=== PATIENT | female | born 1995 | race Caucasian/White ===

== ENCOUNTER 2017-03-08 21:59 | Emergency (ER) | payer SELFPAY ==
[2017-03-09] MEDS ORDERED: CEPHALEXIN 500 MG CAPSULE PO ONE (00:26)
--- NOTE | 2017-03-09 00:27 | ER Document Report ---
ED Skin Rash/Insect Bite/Abscs - General Mode of Arrival: Ambulatory Information source: Patient TRAVEL OUTSIDE OF THE [place] IN LAST 30 DAYS: No - HPI Patient complains to provider of: Skin rash/lesion, Tender/swollen area Onset: This morning - General Chief Complaint: Abscess Stated Complaint: LUMP ON LEFT THIGH Time Seen by Provider: 03/08/17 23:59 Notes: 22-year-old female presents to the ED complaining of 2 abscesses to the left posterior thigh that she noticed earlier today. Patient states that she has been bitten by multiple mosquitoes, but has never developed any swelling and tenderness secondary to bite. Patient does not have a primary care provider ( DAPHNE CROOK) - Related Data Allergies/Adverse Reactions: red dye [Red Dye] Allergy (Verified 04/13/16 20:15) sulfamethoxazole [From Septra] Allergy (Verified 04/13/16 20:15) trimethoprim [From Septra] Allergy (Verified 04/13/16 20:15) vicks vapor rub Allergy (Uncoded 04/13/16 20:15) Past Medical History - General Information source: Patient - Social History Smoking Status: Current Every Day Smoker Chew tobacco use (# tins/day): No Frequency of alcohol use: Rare Drug Abuse: None Family History: Reviewed & Not Pertinent Endocrine Medical History: Denies: Hx Diabetes Mellitus Type 2 Renal/ Medical History: Denies: Hx Peritoneal Dialysis Past Surgical History: Reports: Hx Tonsillectomy - &adenoids - Immunizations Immunizations up to date: Yes Hx Diphtheria, Pertussis, Tetanus Vaccination: Yes Review of Systems - Review of Systems Constitutional: No symptoms reported EENT: No symptoms reported Cardiovascular: No symptoms reported Respiratory: No symptoms reported Gastrointestinal: No symptoms reported Genitourinary: No symptoms reported Female Genitourinary: No symptoms reported Musculoskeletal: No symptoms reported Skin: See HPI, Other - 2 abscesses to the left posterior thigh Hematologic/Lymphatic: No symptoms reported Neurological/Psychological: No symptoms reported -: Yes All other systems reviewed and negative Physical Exam - General General appearance: Alert In distress: None - HEENT Head: Normocephalic, Atraumatic Eyes: Normal Extraocular movements intact: Yes Pupils: PERRL - Respiratory Respiratory status: No respiratory distress Breath sounds: Normal - Cardiovascular Rhythm: Regular Heart sounds: Normal auscultation - Abdominal Inspection: Normal Distension: No distension Tenderness: Nontender - Back Back: Normal, Nontender - Extremities General upper extremity: Normal inspection, Normal ROM General lower extremity: Normal inspection, Normal ROM - Neurological Neuro grossly intact: Yes Cognition: Normal Orientation: AAOx4 Marce Coma Scale Eye Opening: Spontaneous [place] Coma Scale Verbal: Oriented Marce Coma Scale Motor: Obeys Commands [place] Coma Scale Total: 15 Speech: Normal - Psychological Associated symptoms: Normal affect, Normal mood - Skin Skin Temperature: Warm Skin Moisture: Dry Skin Color: Normal Skin irregularity: other - Multiple insect bites to the left thigh with localized surrounding erythema. No signs of necrosis, crepitus, or cellulitis. Discharge - Discharge Clinical Impression: Insect bite Qualifiers: Encounter type: initial encounter Qualified Code(s): W57.XXXA - Bitten or stung by nonvenomous insect and other nonvenomous arthropods, initial encounter Condition: Stable Disposition: HOME, SELF-CARE Additional Instructions: Insect Bites You have been bitten by an insect. These bites can cause two types of swelling: an initial swelling due to insect saliva or injected poison, and a late reaction due to your body's allergic reaction. This initial local reaction may be uncomfortable but is not dangerous. Often there's an itchy "hive" at the bite location. This is treated with antihistamines, cold compresses, and resting the affected body part. The later reaction often develops about the second day. The entire area becomes very swollen, red, itchy, and tender. This is an allergic reaction. Your body is attacking the leftover insect saliva or venom. This type of allergy is unpleasant, but not dangerous. We treat this swelling with cortisone -type medicine. Sometimes we use antibiotics if we're worried about infection. Antihistamines help with the itch. If you develop a fever, chills, a red streak, or swollen glands in the area of the bite, infection may be starting. Return at once. Prescriptions: Cephalexin Monohydrate [Keflex 500 mg Capsule] 500 mg PO QID #28 capsule Referrals: YARITZA WOOD MD [ACTIVE STAFF] - (call for An appointment to be seen in follow- up in 3-4 days return for increasing worsening or new symptoms) Scribe Attestation: 03/09/17 00:34 Presents emergency department with bumps on her left thigh looks like she has a couple areas which look like insect bites which have a localized reaction associated with them and not crepitus necrosis cellulitis or abscess. Do not require incision and drainage. She is well-appearing no systemic complaints and afebrile. When I gave her a dose of Keflex. She is follow-up with a primary care physician I have given her in the next 2-3 days and discussed reasons for ED return sooner (JOÃO GREY) Scribe Documentation - Scribe Written by Gumaro:: Gumaro Zavala, 03/09/2017 0101 acting as scribe for :: Justice
[2017-03-09 00:50] VITALS: BP 110/69
== END 2017-03-09 00:49 | disposition home or self-care (01) ==
LOC: ER 21:59
DX: S70.362A Insect bite (nonvenomous), left thigh, initial encounter (principal); W57.XXXA Bitten or stung by nonvenomous insect and other nonvenomous arthropods, initial encounter; Z91.048 Other nonmedicinal substance allergy status; Z88.1 Allergy status to other antibiotic agents; Z88.8 Allergy status to other drugs, medicaments and biological substances; F17.200 Nicotine dependence, unspecified, uncomplicated
CPT/HCPCS: 99281

== ENCOUNTER 2017-04-13 17:07 | Emergency (ER) | payer SELFPAY ==
[2017-04-13] MEDS ORDERED: MUPIROCIN 2% OINTMENT 22 GM TP ONE (17:38)
[2017-04-13] MEDS ORDERED: CLINDAMYCIN HCL 150 MG CAPSULE PO ONE (17:39)
--- NOTE | 2017-04-13 17:39 | ER Document Report ---
HPI - HPI Patient complains to provider of: rash left lat. thigh, right medial thigh abscess? Onset: Other - several days Quality of pain: Achy Pain Level: 4 Context: 22-year-old female complaining of possible abscess right medial thigh, rash left lateral upper thigh steroid cream is not helping, and wants a test since she has not had a period since March 05. Associated Symptoms: None Exacerbated by: Denies Relieved by: Denies Similar symptoms previously: No Recently seen / treated by doctor: No - ROS ROS below otherwise negative: Yes Systems Reviewed and Negative: Yes All other systems reviewed and negative - REPRODUCTIVE Reproductive: DENIES: : - DERM Skin Color: Normal Past Medical History - General Information source: Patient - Social History Smoking Status: Never Smoker Frequency of alcohol use: None Drug Abuse: None Lives with: Family Family History: Reviewed & Not Pertinent Patient has suicidal ideation: No Patient has homicidal ideation: No - Medical History Medical History: Negative Renal/ Medical History: Denies: Hx Peritoneal Dialysis Surgical Hx: Negative Past Surgical History: Reports: Hx Tonsillectomy - &adenoids - Immunizations Immunizations up to date: Yes Hx Diphtheria, Pertussis, Tetanus Vaccination: Yes Vertical Provider Document - CONSTITUTIONAL Agree With Documented VS: Yes Exam Limitations: No Limitations General Appearance: No Apparent Distress - INFECTION CONTROL TRAVEL OUTSIDE OF THE [place] IN LAST 30 DAYS: No - HEENT HEENT: Normal ENT Exam - NECK Neck: Supple - RESPIRATORY O2 Sat by Pulse Oximetry: 99 - MUSCULOSKELETAL/EXTREMETIES Musculoskeletal/Extremeties: MAEW, FROM - NEURO Level of Consciousness: Awake, Alert, Appropriate - DERM Integumentary: Rash - tinea rash left lateral upper thigh with central clearin, infalmed edges. folliculitis right medial upper thigh,1 more inflamed, not abscess Course - Re-evaluation Re-evalutation: 04/13/17 18:36 test that the patient requested a negative - Vital Signs Vital signs: Temp Pulse Resp BP Pulse Ox 98.0 F 84 18 125/70 99 04/13/17 17:09 04/13/17 17:09 04/13/17 17:09 04/13/17 17:09 04/13/17 17:09 Discharge - Discharge Clinical Impression: Tinea, Folliculitis Condition: Good Disposition: HOME, SELF-CARE Instructions: Skin Fungus ([facility]), Clindamycin ([facility]), Folliculitis ([facility]) Additional Instructions: Stop shaving pubic hair Bactroban 3 times a day to the small lesions Return to the emergency room if the area gets larger, more painful, red or, fever, [id number] antifungal cream to the posterior lateral thigh rash 1 inch past the border 3 times a day. Please complete the patient satisfaction survey if you get one, and return it.. If you do not receive a survey, then you can go to the [facility] website, [email or web address] and place your comments about your very good care. Thank you very much. It was a pleasure being your medical provider today. [id number]-twhaome topical antifungal cream to the left Prescriptions: Clindamycin HCl [Cleocin 150 mg Capsule] 300 mg PO TID #42 capsule Forms: Return to Work
[2017-04-13 18:21] VITALS: BP 104/62
== END 2017-04-13 18:47 | disposition home or self-care (01) ==
LOC: ER 17:07
DX: L73.9 Follicular disorder, unspecified (principal); B35.9 Dermatophytosis, unspecified; Z32.02 Encounter for pregnancy test, result negative
CPT/HCPCS: 99283; 81025; J3490

== ENCOUNTER 2017-06-11 10:43 | Emergency (ER) | payer SELFPAY ==
--- NOTE | 2017-06-11 11:47 | ER Document Report ---
ED General - General Chief Complaint: Flu Symptoms Stated Complaint: EAR ACHE Time Seen by Provider: 06/11/17 11:17 TRAVEL OUTSIDE OF THE [place] IN LAST 30 DAYS: No - HPI Patient complains to provider of: Runny nose bilateral ear pain sore throat Notes: Patient coming in for the above symptoms ongoing for 1 week. States history of otitis media in the past. Patient denies any recent swimming or travel. Patient states that her daughter was sick recently with similar symptoms. Patient is in no obvious distress upon my evaluation. - Related Data Allergies/Adverse Reactions: red dye [Red Dye] Allergy (Verified 06/11/17 10:55) sulfamethoxazole [From Septra] Allergy (Verified 06/11/17 10:55) trimethoprim [From Septra] Allergy (Verified 06/11/17 10:55) vicks vapor rub Allergy (Uncoded 06/11/17 10:55) Past Medical History - Social History Smoking Status: Current Every Day Smoker Chew tobacco use (# tins/day): No Frequency of alcohol use: None Drug Abuse: None Family History: Reviewed & Not Pertinent Endocrine Medical History: Denies: Hx Diabetes Mellitus Type 2 Renal/ Medical History: Denies: Hx Peritoneal Dialysis Past Surgical History: Reports: Hx Tonsillectomy - &adenoids - Immunizations Immunizations up to date: Yes Hx Diphtheria, Pertussis, Tetanus Vaccination: Yes Review of Systems - Review of Systems Constitutional: No symptoms reported EENT: Ear pain Cardiovascular: No symptoms reported Respiratory: No symptoms reported Gastrointestinal: No symptoms reported Genitourinary: No symptoms reported Female Genitourinary: No symptoms reported Musculoskeletal: No symptoms reported Skin: No symptoms reported Hematologic/Lymphatic: No symptoms reported Neurological/Psychological: No symptoms reported -: Yes All other systems reviewed and negative Physical Exam - Vital signs Vitals: Temp Pulse Resp BP Pulse Ox 98.7 F 90 16 123/76 98 06/11/17 10:53 06/11/17 10:53 06/11/17 10:53 06/11/17 10:53 06/11/17 10:53 Interpretation: Normal - General General appearance: Appears well, Alert - HEENT Head: Normocephalic, Atraumatic Eyes: Normal Conjunctiva: Normal Cornea: Normal Extraocular movements intact: Yes Pupils: PERRL Ears: Normal External canal: Normal Tympanic membrane: Injected, Purulent effusion - Right ear Sinus: Normal Pharynx: Normal Neck: Normal - Respiratory Respiratory status: No respiratory distress Chest status: Nontender Breath sounds: Normal Chest palpation: Normal - Cardiovascular Rhythm: Regular Heart sounds: Normal auscultation Murmur: No - Abdominal Inspection: Normal Distension: No distension Bowel sounds: Normal Tenderness: Nontender Organomegaly: No organomegaly - Back Back: Normal, Nontender - Extremities General upper extremity: Normal inspection, Nontender, Normal color, Normal ROM , Normal temperature General lower extremity: Normal inspection, Nontender, Normal color, Normal ROM , Normal temperature, Normal weight bearing. No: Luly's sign - Neurological Neuro grossly intact: Yes Cognition: Normal Orientation: AAOx4 [place] Coma Scale Eye Opening: Spontaneous [place] Coma Scale Verbal: Oriented [place] Coma Scale Motor: Obeys Commands [place] Coma Scale Total: 15 Speech: Normal Motor strength normal: LUE, RUE, LLE, RLE Sensory: Normal - Psychological Associated symptoms: Normal affect, Normal mood - Skin Skin Temperature: Warm Skin Moisture: Dry Skin Color: Normal Course - Re-evaluation Re-evalutation: 06/11/17 17:35 Examination consistent with a right otitis media will start on amoxicillin - Vital Signs Vital signs: Temp Pulse Resp BP Pulse Ox 98.0 F 80 14 120/75 100 06/11/17 11:52 06/11/17 11:52 06/11/17 11:52 06/11/17 11:52 06/11/17 11:52 Discharge - Discharge Clinical Impression: Right middle ear infection Qualifiers: Otitis media type: unspecified Chronicity: unspecified Qualified Code(s): H66.91 - Otitis media, unspecified, right ear Condition: Good Disposition: HOME, SELF-CARE Instructions: Amoxicillin ([facility]), Otitis Media ([facility]) Additional Instructions: Your right ear looks to have a middle ear infection today. Please take medications as prescribed. He may take Tylenol and Motrin for pain control. Return to ER symptoms worsen. Prescriptions: Amoxicillin 500 mg PO TID 10 Days capsule Prednisone [Deltasone] 60 mg PO DAILY 5 Days #15 tablet Forms: Return to Work
[2017-06-11 12:00] VITALS: BP 120/75
== END 2017-06-11 11:53 | disposition home or self-care (01) ==
LOC: ER 10:43
DX: H66.91 Otitis media, unspecified, right ear (principal); H92.09 Otalgia, unspecified ear; F17.200 Nicotine dependence, unspecified, uncomplicated
CPT/HCPCS: 99282

== ENCOUNTER 2017-07-26 17:16 | Emergency (ER) | payer OTHER ==
[2017-07-26 17:23] VITALS: BP 112/69
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
[2017-07-26 18:01] LABS: APPEARANCE,URINE SLIGHTLY-CLOUDY; BILIRUBIN,URINE NEGATIVE (NEGATIVE); GLUCOSE, URINE NEGATIVE (NEGATIVE); KETONES,URINE NEGATIVE (NEGATIVE); LEUKOCYTE ESTERASE,URINE LARGE (NEGATIVE); NITRITE,URINE NEGATIVE (NEGATIVE); PROTEIN,URINE NEGATIVE (NEGATIVE); UROBILINOGEN,URINE NEGATIVE mg/dL (<2.0)
[2017-07-26] MEDS ORDERED: NAPROXEN 250 MG TABLET PO ONE (18:34)
== END 2017-07-26 18:43 | disposition home or self-care (01) ==
LOC: ER 17:16
DX: M54.5 Low back pain (principal); V63.6XXA Passenger in heavy transport vehicle injured in collision with car, pick-up truck or van in traffic accident, initial encounter; F17.210 Nicotine dependence, cigarettes, uncomplicated; Z71.6 Tobacco abuse counseling; Z91.048 Other nonmedicinal substance allergy status; Z88.1 Allergy status to other antibiotic agents; Z88.8 Allergy status to other drugs, medicaments and biological substances
CPT/HCPCS: 81001; 81025; 99284

== ENCOUNTER 2018-01-09 13:34 | Emergency (ER) | payer SELFPAY ==
[2018-01-09] MEDS ORDERED: ACETAMINOPHEN 325 MG TABLET PO ONE (14:40)
--- NOTE | 2018-01-09 14:44 | ER Document Report ---
HPI - HPI Pain Level: 4 Notes: Patient is a 22-year-old female with a history of recurrent otitis media who presents to the ED complaining of right ear pain that radiates down into her right jaw over the last couple days. Patient has not noticed any obvious drainage. He has not had any other recent illness. She has been eating and drinking without difficulties. She has been urinating normally and having normal bowel movements. Patient has not been evaluated by ear nose and throat. No other concerns or complaints at this time. No recent swimming or bathing. Denies any headache, fever, head injury, neck pain, changes in vision/speech/ mentation/hearing, URI, sore throat, chest pain, palpitations, syncope, cough, shortness of breath, wheeze, dyspnea, abdominal pain, nausea/vomiting/diarrhea, urinary retention, dysuria, hematuria, or rash. - ROS Systems Reviewed and Negative: Yes All other systems reviewed and negative - CONSTITUTIONAL Constitutional: DENIES: Fever, Chills - EENT EENT: REPORTS: Ear Pain - right - REPRODUCTIVE Reproductive: DENIES: : Past Medical History - Social History Smoking Status: Current Every Day Smoker Chew tobacco use (# tins/day): No Frequency of alcohol use: None Drug Abuse: None Family History: Arthritis, COPD, Hyperlipidemia, Hypertension, Thyroid Disfunction. denies: CAD, CVA, DM, Malignancy Patient has suicidal ideation: No Patient has homicidal ideation: No Renal/ Medical History: Reports: Hx Ovarian Cysts. Denies: Hx Peritoneal Dialysis Musculoskeltal Medical History: Reports Hx Musculoskeletal Deformity, Reports Hx Musculoskeletal Trauma Psychiatric Medical History: Reports: Hx Anxiety, Hx Depression Past Surgical History: Reports: Hx Adenoidectomy, Hx Tonsillectomy - Immunizations Immunizations up to date: Yes Hx Diphtheria, Pertussis, Tetanus Vaccination: Yes Vertical Provider Document - CONSTITUTIONAL Agree With Documented VS: Yes Notes: PHYSICAL EXAMINATION: GENERAL: Well-appearing, well-nourished and in no acute distress. A&Ox4. Answers questions appropriately. Moves comfortably w/o notable distress HEAD: Atraumatic, normocephalic. EYES: Pupils equal round and reactive to light, extraocular movements intact, sclera anicteric, conjunctiva are normal. ENT: EAC clear b/l. Rt TM mild bulging/erythema. Lt TM wnl. Nares patent and without discharge. oropharynx no erythema without exudates. No tonsilar hypertrophy without erythema or exudate. No palatine shift. Uvula midline. No tongue protrusion. No drooling, hoarseness, or airway compromise. Moist mucous membranes. No sinus tenderness. No dental pain/abscess noted. NECK: Normal range of motion, supple without lymphadenopathy. No rigidity/ meningismus. LUNGS: Breath sounds clear to auscultation bilaterally and equal. No wheezes rales or rhonchi. No retractions HEART: Regular rate and rhythm without murmurs, rubs, gallops. ABDOMEN: Soft, nontender, nondistended abdomen. No guarding, no rebound. No masses appreciated. Normal bowel sounds present. No CVA tenderness bilaterally. No hepatosplenomegaly. NEUROLOGICAL: Normal speech, normal gait. Normal sensory, motor exams PSYCH: Normal mood, normal affect. SKIN: Warm, Dry, normal turgor, no rashes or lesions noted. - INFECTION CONTROL TRAVEL OUTSIDE OF THE [place] IN LAST 30 DAYS: No Course - Re-evaluation Re-evalutation: 01/09/18 14:42 Patient is an afebrile, well-hydrated, 22-year-old female who presents to the ED with acute otitis media of the right ear. Vitals are acceptable. PE is otherwise unremarkable. No labs or imaging warranted at this time based on H& P. Low suspicion for any meningitis, sepsis, peritonsillar/pharyngeal abscess, respiratory compromise, Abhilash's, or other emergent systemic condition at this time. Patient is aware this condition can change from initial presentation and she needs to monitor symptoms closely. I will send her home with a prescription for amoxicillin. Conservative measures otherwise for symptoms. Recheck with your PCM in 3-5 days. Return to the ED with any worsening/ concerning symptoms otherwise as reviewed in discharge. Patient is in agreement. - Vital Signs Vital signs: Temp Pulse Resp BP Pulse Ox 98.3 F 91 14 119/63 97 01/09/18 13:44 01/09/18 13:44 01/09/18 13:44 01/09/18 13:44 01/09/18 13:44 Discharge - Discharge Clinical Impression: Otitis media, right Qualifiers: Otitis media type: unspecified Qualified Code(s): H66.91 - Otitis media, unspecified, right ear Condition: Stable Disposition: HOME, SELF-CARE Instructions: Otitis Media ([facility]) Additional Instructions: Maintain adequate fluid intake Take meds as directed Keep the ears clean and avoid use of q-tips tylenol/ibuprofen as needed over the counter cold medication as needed for symptoms Wash your hands regularly F/u: with your PCM in 3-5 days for a recheck Consider consult with ENT for further evaluation and management Return to the ED with any fever, worsening pain, chest pain, palpitations, syncope, worsening MCCARTHY, neck pain/stiffness, shortness of breath, wheezing, drooling, trouble swallowing/breathing, abdominal pain, n/v/d, rash, or worsening/concerning symptoms otherwise. Prescriptions: Amoxicillin Trihydrate [Amoxil 875 mg Tablet] 1 tab PO BID #20 tablet Forms: Smoking Cessation Education Referrals: NICK RODRIGUEZ DO [ASSOCIATE] - Follow up as needed
[2018-01-09 15:35] VITALS: BP 112/68
== END 2018-01-09 15:35 | disposition home or self-care (01) ==
LOC: ER 13:34
DX: H66.91 Otitis media, unspecified, right ear (principal); F17.200 Nicotine dependence, unspecified, uncomplicated
CPT/HCPCS: 99282

== ENCOUNTER 2018-02-07 19:39 | Emergency (ER) | payer SELFPAY ==
[2018-02-07 20:27] VITALS: BP 115/61
[2018-02-07] MEDS ORDERED: HYDROCODONE/ACETAMINOPHEN 5-325 MG (6 TAB/ER DISP) PO PRN (22:03)
[2018-02-07] MEDS ORDERED: PENICILLIN V POTASSIUM 500 MG TABLET PO ONE (22:03)
--- NOTE | 2018-02-07 22:03 | ER Document Report ---
HPI - HPI Pain Level: 2 Notes: 22-year-old female with complaint of possible abscess behind her front lower teeth. Patient reports this is been there for about 4 days. Patient reports that intermittently it has drained pus-like fluid. Patient reports that she feels it is getting larger and is more painful. Patient reports that she feels like her tooth is has pressure on it due to the area in question. - REPRODUCTIVE Reproductive: DENIES: : Past Medical History - General Information source: Patient - Social History Smoking Status: Current Some Day Smoker Cigarette use (# per day): No Chew tobacco use (# tins/day): No Smoking Education Provided: No Frequency of alcohol use: None Drug Abuse: None Family History: Arthritis, COPD, Hyperlipidemia, Hypertension, Thyroid Disfunction. denies: CAD, CVA, DM, Malignancy Renal/ Medical History: Reports: Hx Ovarian Cysts. Denies: Hx Peritoneal Dialysis Musculoskeltal Medical History: Reports Hx Musculoskeletal Deformity, Reports Hx Musculoskeletal Trauma Psychiatric Medical History: Reports: Hx Anxiety, Hx Depression Past Surgical History: Reports: Hx Adenoidectomy, Hx Tonsillectomy - Immunizations Immunizations up to date: Yes Hx Diphtheria, Pertussis, Tetanus Vaccination: Yes Vertical Provider Document - CONSTITUTIONAL Agree With Documented VS: Yes Exam Limitations: No Limitations General Appearance: WD/WN, No Apparent Distress - INFECTION CONTROL TRAVEL OUTSIDE OF THE [place] IN LAST 30 DAYS: No - HEENT HEENT: Normocephalic, PERRLA Mouth Diagram: 1 - approx 1cm abscess beind front lower tooth - NECK Neck: Normal Inspection - RESPIRATORY Respiratory: Breath Sounds Normal, No Respiratory Distress - CARDIOVASCULAR Cardiovascular: Regular Rate, Regular Rhythm - GI/ABDOMEN Gastrointestinal: Abdomen Non-Tender - MUSCULOSKELETAL/EXTREMETIES Musculoskeletal/Extremeties: NIESHA SORIANO - NEURO Level of Consciousness: Awake, Alert - DERM Integumentary: Warm, Dry, No Rash Course - Re-evaluation Re-evalutation: Small abscess incised initially with 18-gauge needle with minimal results. Patient requesting for it to be drained further. Approximately 0.25cm incision made with scalpel and additional drainage was obtained. Patient given 2 x 2 and told to use salt water gargles. Patient will be placed on antibiotics and instructed to follow-up with dentist later this week or early next week. Patient understands return precautions to include worsening swelling or development of fever. 02/08/18 05:24 - Vital Signs Vital signs: Temp Pulse Resp BP Pulse Ox 98.5 F 81 16 115/61 97 02/07/18 20:26 02/07/18 20:26 02/07/18 20:26 02/07/18 20:26 02/07/18 20:26 Procedures - Incision and Drainage lower inside gum line I&D procedure: Other Incision Method: Incision made by scalpel Discharge - Discharge Clinical Impression: Oral abscess Condition: Stable Disposition: HOME, SELF-CARE Additional Instructions: Dental Infection or Abscess You have an infection, perhaps an abscess (pus formation) of the gum around one of your teeth, which is possibly decayed. If there is an abscess, it may drain on its own or it may need to be opened or lanced. Severe swelling or drainage around a tooth usually means a deep dental abscess which usually requires evaluation and treatment by a dentist or oral surgeon. Antibiotics may be prescribed while awaiting dental treatment. If you develop high fever with chills, worsening pain, or increasing swelling in the area, see a dentist or oral surgeon immediately or return to the Emergency Department immediately. Take medications as prescribed prescribed. Make a follow-up appointment with your dentist for early next week for a recheck. Prescriptions: Penicillin V Potassium [Penicillin Vk 500 mg Tablet] 500 mg PO BID #20 tablet Forms: Return to Work
== END 2018-02-07 22:30 | disposition home or self-care (01) ==
LOC: ER 19:39
DX: K12.2 Cellulitis and abscess of mouth (principal); F17.200 Nicotine dependence, unspecified, uncomplicated
CPT/HCPCS: 99283

== ENCOUNTER 2018-02-09 18:47 | Emergency (ER) | payer SELFPAY ==
[2018-02-09] MEDS ORDERED: PENICILLIN V POTASSIUM 500 MG TABLET PO ONE (20:56)
--- NOTE | 2018-02-09 21:01 | ER Document Report ---
ED Oral Problem - General Chief Complaint: Mouth Problem Stated Complaint: MOUTH PAIN Time Seen by Provider: 02/09/18 20:15 Mode of Arrival: Ambulatory Information source: Patient TRAVEL OUTSIDE OF THE [place] IN LAST 30 DAYS: No - HPI Patient complains to provider of: Other - gum pain Notes: Patient is here with complaints of left lower gum swelling that started a few days ago. The patient was seen in the emergency department 2 days ago and had an incision and drainage performed. She was given a prescription for Pen-Vee K , but states that she did not fill it and has not been taking any antibiotics. She states that now the area is swollen again. She denies fever. She denies difficulty breathing or swallowing. No nausea, vomiting, diarrhea. No rash. No facial swelling. No neck swelling. No chest pain or shortness of breath. No abdominal pain. She denies any other complaints at this time. - Related Data Allergies/Adverse Reactions: red dye [Red Dye] Allergy (Verified 02/09/18 19:49) sulfamethoxazole [From Septra] Allergy (Verified 02/09/18 19:49) trimethoprim [From Septra] Allergy (Verified 02/09/18 19:49) vicks vapor rub Allergy (Uncoded 02/09/18 19:49) Past Medical History - Social History Smoking Status: Current Every Day Smoker Frequency of alcohol use: Occasional Drug Abuse: None Family History: Arthritis, COPD, Hyperlipidemia, Hypertension, Thyroid Disfunction. denies: CAD, CVA, DM, Malignancy Patient has suicidal ideation: No Patient has homicidal ideation: No Renal/ Medical History: Reports: Hx Ovarian Cysts. Denies: Hx Peritoneal Dialysis Musculoskeltal Medical History: Reports Hx Musculoskeletal Deformity, Reports Hx Musculoskeletal Trauma Psychiatric Medical History: Reports: Hx Anxiety, Hx Depression Past Surgical History: Reports: Hx Adenoidectomy, Hx Tonsillectomy - Immunizations Immunizations up to date: Yes Hx Diphtheria, Pertussis, Tetanus Vaccination: Yes Review of Systems - Review of Systems -: Yes All other systems reviewed and negative Physical Exam - Vital signs Vitals: Temp Pulse Resp BP Pulse Ox 99.0 F 87 18 111/67 97 02/09/18 18:58 02/09/18 18:58 02/09/18 18:58 02/09/18 18:58 02/09/18 18:58 - Notes Notes: GENERAL: alert, cooperative, nontoxic, no distress. HEAD: normocephalic, atraumatic EYES: conjunctiva pink without discharge, no external redness or swelling. EARS: no external swelling, no external redness NOSE: atraumatic, no external swelling MOUTH/THROAT: mucous membranes moist and pink. Small, 3 mm possible abscess to the lingual aspect of the left lower jaw at approximately tooth #23. There is no sublingual swelling or induration. No trismus or drooling. Voice is normal. No airway restriction. NECK: soft, supple, full range of motion, no meningismus. CHEST: no distress, lungs clear and equal throughout. No wheezing, rales, rhonchi. CARDIAC: regular rate and rhythm, no murmur, normal capillary refill, normal pulses. BACK: full range of motion, no CVA tenderness. EXTREMITIES: full range of motion of all extremities. No redness, no swelling. NEURO: alert and oriented 3, no focal deficits, full range of motion of all extremities. PYSCH: appropriate mood, affect. Patient is cooperative. SKIN: pink, warm, dry, no rash. Course - Re-evaluation Re-evalutation: 02/09/18 20:58 Patient is nontoxic appearing with stable vitals. She is here with complaints of gum abscess. She was seen here 2 days ago and had an I&D performed and was given a prescription for Pen-Vee K. She states that she did not fill the antibiotics because she did not have any money. She did not actually take the prescription to see how much it would cost to get filled. This point she states that the area seems to be returning. She denies any worsening pain. No fever. No difficulty breathing or swallowing. On exam she has a very small abscess to the left lingual aspect of the gumline. There is no sign of Abhilash' s angina. She is in no distress. Did offer another I&D. She declined at this time. This point the patient will be given a dose of Pen-Vee K in the emergency department she was instructed to fill the prescription she was given 2 days ago and start this medication at the next available time. She is instructed to apply warm compresses to sore area. She is instructed to follow- up with a dentist at the next available appointment. She should follow-up sooner if she develops worsening pain, fever, difficulty breathing or swallowing , persistent vomiting, neck swelling, facial swelling, or for any further concerns. The patient's emergency department workup and current diagnosis were explained to the patient and or family. Follow-up instructions were provided. Medications if prescribed were discussed. Instructions for when to return to the emergency department including specific worrisome symptoms were discussed with the patient and/or family. - Vital Signs Vital signs: Temp Pulse Resp BP Pulse Ox 99.0 F 87 18 111/67 97 02/09/18 18:58 02/09/18 18:58 02/09/18 18:58 02/09/18 18:58 02/09/18 18:58 Discharge - Discharge Clinical Impression: Dental abscess Condition: Stable Disposition: HOME, SELF-CARE Instructions: Abscess ([facility]), Dental Infection or Abscess ([facility]), Dentist Additional Instructions: Take medications as prescribed. Apply warm compresses. Follow-up with a dentist at the next available appointment. Tylenol Motrin as needed for pain. Follow-up sooner for worsening pain, fever, swelling, difficulty breathing or swelling, or for any further concerns. Referrals: [facility] [Provider Group] - Follow up as needed DENTISTRY [Provider Group] - Follow up as needed
[2018-02-09 21:32] VITALS: BP 144/76
== END 2018-02-09 21:32 | disposition home or self-care (01) ==
LOC: ER 18:47
DX: K04.7 Periapical abscess without sinus (principal); K08.89 Other specified disorders of teeth and supporting structures; R22.0 Localized swelling, mass and lump, head; F17.200 Nicotine dependence, unspecified, uncomplicated
CPT/HCPCS: 99282

== ENCOUNTER 2018-05-16 01:08 | Emergency (ER) | payer SELFPAY ==
[2018-05-16] MEDS ORDERED: DEXAMETHASONE SOD PHOS INJ 10 MG/1 ML VIAL IV ONE (02:01)
[2018-05-16] MEDS ORDERED: NORMAL SALINE 1000 ML 1,000 ML IV ONE (02:01)
[2018-05-16] MEDS ORDERED: METOCLOPRAMIDE HCL INJ/PF 10 MG/2 ML SDV IV ONE (02:01)
--- NOTE | 2018-05-16 02:29 | ER Document Report ---
ED General - General Chief Complaint: Chest Wall Pain Stated Complaint: HEADACHES,CHEST PAINS Time Seen by Provider: 05/16/18 01:55 Notes: Patient is a 23-year-old female presents with complaint of aching chest pain. Patient says that she has been stressed out a lot recently. She does have history of anxiety but is unsure if this is related to anxiety. Headache started 3 days ago and was just a mild which she called "normal" headache. Headache that has progressively worse over last 2 days and then today she started having some chest pain. Said chest pain is pleuritic and worse whenever she takes a deep breath or coughs. No fevers. No vomiting. No history of DVT or PE. No leg pain or leg swelling. No focal weakness or numbness. No other complaints at this time. TRAVEL OUTSIDE OF THE [place] IN LAST 30 DAYS: No - Related Data Allergies/Adverse Reactions: red dye [Red Dye] Allergy (Verified 02/09/18 19:49) sulfamethoxazole [From Septra] Allergy (Verified 02/09/18 19:49) trimethoprim [From Septra] Allergy (Verified 02/09/18 19:49) vicks vapor rub Allergy (Uncoded 02/09/18 19:49) Past Medical History - Social History Smoking Status: Unknown if Ever Smoked Frequency of alcohol use: None Drug Abuse: None Family History: Arthritis, COPD, Hyperlipidemia, Hypertension, Thyroid Disfunction. denies: CAD, CVA, DM, Malignancy Patient has suicidal ideation: No Patient has homicidal ideation: No Renal/ Medical History: Reports: Hx Ovarian Cysts. Denies: Hx Peritoneal Dialysis Musculoskeletal Medical History: Reports Hx Musculoskeletal Deformity, Reports Hx Musculoskeletal Trauma Psychiatric Medical History: Reports: Hx Anxiety, Hx Depression Past Surgical History: Reports: Hx Adenoidectomy, Hx Tonsillectomy - Immunizations Immunizations up to date: Yes Hx Diphtheria, Pertussis, Tetanus Vaccination: Yes Review of Systems - Review of Systems Notes: My Normal Review Basic REVIEW OF SYSTEMS: CONSTITUTIONAL : Denies fever, chills, or sweats. Denies recent illness. EENT: Denies eye, ear, throat, or mouth pain or symptoms. Denies nasal or sinus congestion. CARDIOVASCULAR: Pleuritic chest pain RESPIRATORY: Denies cough, cold, or chest congestion. Denies shortness of breath, difficulty breathing, or wheezing. GASTROINTESTINAL: Denies abdominal pain. Denies nausea, vomiting, or diarrhea. GENITOURINARY: Denies difficulty urinating, painful urination, burning, frequency, or blood in urine. MUSCULOSKELETAL: Denies neck or back pain or joint pain or swelling. SKIN: Denies rash or skin lesions. NEUROLOGICAL: Denies altered mental status or loss of consciousness. Has a headache. Denies weakness or paralysis or loss of use of either side. Denies problems with gait or speech. Denies sensory or motor loss. PSYCHIATRIC: Some increased stressors. ALL OTHER SYSTEMS REVIEWED AND NEGATIVE. Physical Exam - Notes Notes: General Appearance: Well nourished, alert, cooperative, no acute distress, moderate obvious discomfort. Anxious. Vitals: reviewed, See vital signs table. Head: no swelling or tenderness to the head Eyes: PERRL, EOMI, Conjuctiva clear Mouth: No decreasd moisture Lungs: No wheezing, No rales, No rhonci, No accessory muscle use, good air exchange bilaterally. Heart: Tachycardic rate, Regular rythm, No murmur, no rub Abdomen: Normal BS, soft, No rigidity, No abdominal tenderness, No guarding, no rebound, no abdominal masses, no organomegaly Extremities: strength 5/5 in all extremities, good pulses in all extremities, no swelling or tenderness in the extremities, no edema. Skin: warm, dry, appropriate color, no rash Neuro: speech clear, oriented x 3, normal affect, responds appropriately to questions. Cranial nerves II through XII are intact. Distal sensation intact. Patient moves all extremities without any difficulty. No focal weakness on exam. Course - Re-evaluation Re-evalutation: 05/16/18 03:22 Patient is having some mild dystonia from the Reglan. I will therefore order Benadryl to help counteract this. 05/16/18 06:37 Patient symptoms have completely resolved. His chest pain headache are gone. She was tachycardic initially and therefore I did obtain a d-dimer. D-dimer was positive and therefore she had a CTA which did not show evidence of PE. Suspect that her symptoms could be related to her stress or anxiety. She otherwise looks well. I do not see a suspect subarachnoid hemorrhage being that her headache was gradual in onset and gradually worsening over the course of several days. She has no neurologic deficits and otherwise looks well. I feel that she is safe to be discharged home. I encouraged her return to ER immediately if she has recurrent severe headache, current chest pain, difficulty breathing, fevers, or feels unwell. Patient agrees with plan will be discharged home. Dictation of this chart was performed using voice recognition software; therefore, there may be some unintended grammatical errors. - Laboratory Result Diagrams: 05/16/18 02:31 05/16/18 02:31 Laboratory results interpreted by me: 05/16/18 02:31 D-Dimer 0.71 H - EKG Interpretation by Me Additional EKG results interpreted by me: 05/16/18 02:29 EKG is reviewed and interpreted by me. EKG shows sinus tachycardia with a rate of [address] segment elevation or depression. No ischemic T-wave inversions. FL interval, QRS duration, QTc intervals are within normal range. No old EKG available for comparison. Discharge - Discharge Clinical Impression: Chest pain Qualifiers: Chest pain type: unspecified Qualified Code(s): R07.9 - Chest pain, unspecified Headache Qualifiers: Headache type: unspecified Headache chronicity pattern: acute headache Intractability: not intractable Qualified Code(s): R51 - Headache Condition: Good Disposition: HOME, SELF-CARE Additional Instructions: Please rest over the next 24 hours. please return to the ER if you develop recurrent headaches, worsening chest pain, difficulty breathing, or feel unwell. Follow up with your doctor in 2 days. Forms: Return to Work
[2018-05-16 02:45] LABS: ABSOLUTE EOSINOPHILS # (AUTO) 0.2 10^3/uL (0.0-0.6); ABSOLUTE LYMPHOCYTES (AUTO) 1.6 10^3/uL (0.5-4.7); ABSOLUTE MONOCYTES (AUTO) 0.8 10^3/uL (0.1-1.4); ABSOLUTE NEUT (AUTO) 5.6 10^3/uL (1.7-8.2); BASOPHILS % (AUTO) 0.6 % (0-2); EOSINOPHILS % (AUTO) 2.5 % (0-6); HEMATOCRIT 41.9 % (36.0-47.0); HEMOGLOBIN 14.3 g/dL (12.0-15.5); LYMPHOCYTES % (AUTO) 19.8 % (13-45); MEAN CORPUSCULAR HEMOGLOBIN 29.4 pg (27.0-33.4); MEAN CORPUSCULAR HGB CONC 34.1 g/dL (32.0-36.0); MEAN CORPUSCULAR VOLUME 86 fl (80-97); MONOCYTES % (AUTO) 9.3 % (3-13); PLATELET COUNT 209 10^3/uL (150-450); RED BLOOD COUNT 4.85 10^6/uL (3.72-5.28); RED CELL DISTRIBUTION WIDTH 12.6 % (11.5-14.0); SEGMENTED NEUTROPHILS % (AUTO) 67.8 % (42-78); TOTAL CELLS COUNTED % (AUTO) 100 %; WHITE BLOOD COUNT 8.2 10^3/uL (4.0-10.5)
[2018-05-16 02:54] LABS: ANION GAP 14 (5-19); BLOOD UREA NITROGEN 9 mg/dL (7-20); CALCIUM 9.5 mg/dL (8.4-10.2); CARBON DIOXIDE 23 mmol/L (22-30); CHLORIDE 105 mmol/L (98-107); GLUCOSE 92 mg/dL (75-110)
--- NOTE | 2018-05-16 03:08 | RADIOLOGY REPORT (SQ) ---
EXAM DESCRIPTION: CT HEAD WITHOUT IV CONTRAST COMPLETED DATE/TME: 05/16/2018 02:01 CLINICAL HISTORY: 23 years Female, headache COMPARISON: None. TECHNIQUE: No contrast. Coronal and sagittal reformat. This exam was performed according to our departmental dose-optimization program, which includes automated exposure control, adjustment of the mA and/or kV according to patient size and/or use of iterative reconstruction technique. FINDINGS: No hemorrhage or infarct. No mass, mass effect, or midline shift. Brain and extra-axial structures appear intact. IMPRESSION: Normal CT of the head.
[2018-05-16] MEDS ORDERED: KETOROLAC TROMETHAMINE INJ/PF 30 MG/1 ML SDV IV ONE (03:09)
--- NOTE | 2018-05-16 03:14 | RADIOLOGY REPORT (SQ) ---
EXAM DESCRIPTION: XR CHEST 1 VIEW COMPLETED DATE/TME: 05/16/2018 02:01 CLINICAL HISTORY: 23 years, Female, chest pain COMPARISON: 11/07/2014 NUMBER OF VIEWS: One TECHNIQUE: PA view of the chest LIMITATIONS: None. FINDINGS: The lungs are clear. The heart is normal in size. There is no pneumothorax or pleural effusion. There is no acute fracture IMPRESSION: No acute cardiopulmonary abnormality 2010 [employer]- All Rights Reserved
[2018-05-16] MEDS ORDERED: DIPHENHYDRAMINE HCL 50 MG/ML VIAL IV ONE (03:22)
--- NOTE | 2018-05-16 04:55 | RADIOLOGY REPORT (SQ) ---
CT angiogram chest with contrast on 05/16/2018 at 4:34 AM CLINICAL INDICATION: Pleuritic chest pain, elevated d-dimer TECHNIQUE: Multiple axial images are obtained throughout the chest following the administration of IV contrast. Computer generated 3D reconstructions/MIPS were performed. This exam was performed according to our departmental dose-optimization program, which includes automated exposure control, adjustment of the mA and/or kV according to patient size and/or use of iterative reconstruction technique. Total DLP is 742.76 mGy*cm. COMPARISON: None FINDINGS: There is no aortic aneurysm or dissection. There is no pleural effusion. There is a trace right pleural effusion. No left pleural effusion is noted. Limited visualized upper abdomen is unremarkable. There is no thoracic adenopathy. There are no filling defects within the pulmonary arteries to suggest pulmonary embolus. There is minimal bilateral dependent atelectasis. The lungs are otherwise clear. No bony abnormality is noted. IMPRESSION: 1. No evidence of pulmonary embolus. 2. Trace right pleural effusion, otherwise essentially unremarkable.
--- NOTE | 2018-05-16 06:14 | EKG REPORT ---
SEVERITY:- OTHERWISE NORMAL ECG - SINUS TACHYCARDIA : Confirmed by: Harry Arzate MD 16-May-2018 06:13:22
== END 2018-05-16 05:55 | disposition home or self-care (01) ==
LOC: ER 01:08
DX: R07.81 Pleurodynia (principal); R51 Headache; F41.9 Anxiety disorder, unspecified; G24.09 Other drug induced dystonia; T45.0X5A Adverse effect of antiallergic and antiemetic drugs, initial encounter; Y92.238 Other place in hospital as the place of occurrence of the external cause; R79.1 Abnormal coagulation profile; R00.0 Tachycardia, unspecified; Z91.048 Other nonmedicinal substance allergy status; Z88.1 Allergy status to other antibiotic agents; Z88.8 Allergy status to other drugs, medicaments and biological substances
CPT/HCPCS: 93005; 99285; 96361; 96374; 96375; 36415; 84703; 85025; 80048; 85379; 71045; 70450; 71275; 93010; J1200; J1885; J2765; J7030; J1100

== ENCOUNTER 2018-10-09 11:24 | Emergency (ER) | payer SELFPAY ==
[2018-10-09] MEDS ORDERED: HYDROCODONE/ACETAMINOPHEN 5-325 MG TABLET PO ONE (12:44)
[2018-10-09] MEDS ORDERED: CIPROFLOXACIN HCL/DEXAMETH OTIC DROP 7.5 ML AS ONE (12:44)
[2018-10-09] MEDS ORDERED: AMOXICILLIN TRIHYDRATE 500 MG CAPSULE PO ONE (12:44)
--- NOTE | 2018-10-09 12:48 | ER Document Report ---
HPI - HPI Time Seen by Provider: 10/09/18 12:05 Pain Level: 5 Notes: Patient is a 23-year-old female who presents with chief complaint of right ear pain. Patient reports pain deep inside her ear as well as on the ear canal. Patient reports pain has been ongoing for approximately 1 week. Patient has not taken any medications at home to try to help with the pain. - EENT EENT: REPORTS: Ear Pain - R ear - REPRODUCTIVE Reproductive: DENIES: : Past Medical History - General Information source: Patient - Social History Smoking Status: Current Every Day Smoker Chew tobacco use (# tins/day): No Frequency of alcohol use: None Drug Abuse: None Family History: Arthritis, COPD, Hyperlipidemia, Hypertension, Thyroid Disfunction. denies: CAD, CVA, DM, Malignancy Patient has suicidal ideation: No Patient has homicidal ideation: No Renal/ Medical History: Reports: Hx Ovarian Cysts. Denies: Hx Peritoneal Dialysis Musculoskeletal Medical History: Reports Hx Musculoskeletal Deformity, Reports Hx Musculoskeletal Trauma Psychiatric Medical History: Reports: Hx Anxiety, Hx Depression Past Surgical History: Reports: Hx Adenoidectomy, Hx Tonsillectomy - Immunizations Immunizations up to date: Yes Hx Diphtheria, Pertussis, Tetanus Vaccination: Yes Vertical Provider Document - CONSTITUTIONAL Notes: PHYSICAL EXAMINATION: GENERAL: Well-appearing, well-nourished and in no acute distress. HEAD: Atraumatic, normocephalic. EYES: Pupils equal round extraocular movements intact, conjunctiva are normal. ENT: Nares patent, left TM and canal appear normal. Right TM bulging and retracted, right canal erythematous and edematous. NECK: Normal range of motion LUNGS: No respiratory distress Musculoskeletal: Normal range of motion NEUROLOGICAL: Normal speech, normal gait. PSYCH: Normal mood, normal affect. SKIN: Warm, Dry, normal turgor, no rashes or lesions noted. - INFECTION CONTROL TRAVEL OUTSIDE OF THE [place] IN LAST 30 DAYS: No Course - Re-evaluation Re-evalutation: Patient's examination is consistent with both otitis media and otitis externa. Patient will be placed on amoxicillin and Ciprodex. Patient will be given 1 dose of hydrocodone here in the emergency department she states her pain is severe. Patient did ask the nurse for prescription for hydrocodone, this is not indicated patient instructed to take Tylenol or ibuprofen. - Vital Signs Vital signs: Temp Pulse Resp BP Pulse Ox 98.2 F 89 12 113/77 96 10/09/18 11:30 10/09/18 11:30 10/09/18 11:30 10/09/18 11:30 10/09/18 11:30 Discharge - Discharge Clinical Impression: Otitis media Qualifiers: Otitis media type: unspecified Chronicity: acute Qualified Code(s): H66.90 - Otitis media, unspecified, unspecified ear Otitis externa Qualifiers: Otitis externa type: unspecified type Chronicity: acute Laterality: right Qualified Code(s): H60.501 - Unspecified acute noninfective otitis externa, right ear Condition: Stable Disposition: HOME, SELF-CARE Additional Instructions: OTITIS EXTERNA: You have otitis externa -- an infection of the outer ear canal. This can be very painful. It's sometimes called "swimmer's ear," because it often occurs after prolonged water exposure. Many things, such as earwax and dirt in the ear, can contribute to it. The usual treatment is antibiotic/antiinflammatory ear drops. Occasionally, a wick will be placed in the ear to draw in the medicine. If the infection is severe, an oral antibiotic may be prescribed. Pain medication is often needed. Avoid getting water in the ear. Outer ear infections often take longer to heal than you might expect. Some tenderness and ache in the ear may persist for about two weeks. See your physician if you fail to improve as expected. Call the doctor at once if you develop fever, increasing swelling (particularly if it makes your ear "poke out"), severe headache, stiff neck, or decreased hearing. USE OF EAR DROPS: Your ear drops won't do much good if they don't get all the way in. To help the ear drops penetrate all the way to the ear drum, use the following technique. If you encounter problems of any kind, notify the physician. (1) Lay your head sideways on a pillow. (2) Place the dropper tip just barely inside the ear canal, almost touching the bottom side of the canal. The liquid is tolerated better on the bottom of the canal. (3) Squeeze out the appropriate amount of medicine, and remove the dropper. (4) Grab the back of the ear (just behind the ear canal) between your index finger and thumb. (5) Tug up, then let the ear drop back. Repeat several times. This pumps the medicine down. (6) Wait five minutes, then place a cotton ball in the ear canal to catch and hold the medicine. OTITIS MEDIA: You have a middle ear infection (otitis media). This is usually a complication of a cold or sore throat. The middle ear cavity becomes filled with infection. Pressure and stretching of the ear drum cause pain. Antibiotics are required. A 10 day course is usually prescribed. A decongestant may be recommended if you have a "runny nose." You may need anesthetic drops or other pain medication. A follow-up exam may be recommended to make sure the infection has completely cleared. If the ear begins to drain, it means the ear drum has ruptured. This will usually heal spontaneously. However, it means you should keep the ear dry until re-examined by a doctor. Call the physician or return for examination at once if there is severe headache, stiff neck, confusion, increasing fever, or dizziness. You should imp rove significantly within two days. If you're not better, call the doctor. AMOXICILLIN: Amoxicillin is a member of the penicillin family. It covers the germs likely to cause ear, bronchial, and urinary infections better than plain penicillin. Amoxicillin can be taken without regard to meals. Nausea after taking the medication is rare, but can occur. Diarrhea can occur, particularly in small children. Vaginal yeast infections and oral thrush in infants are also common. Contact your physician if these problems occur. Allergy to penicillins is common. If you have had an allergic reaction to any drug of the penicillin family, you should never take any other penicillin. Notify your doctor at once if you develop hives, itching, swelling, faintness, or shortness of breath. Less serious side effects can include nausea or diarrhea. FOLLOW-UP CARE: If you have been referred to a physician for follow-up care, call the physicians office for an appointment as you were instructed or within the next two days. If you experience worsening or a significant change in your symptoms, notify the physician immediately or return to the Emergency Department at any time for re-evaluation. Please take medications as prescribed on the bottle. Please apply 4 drops to the right ear twice daily of the Ciprodex for 7 days. Take Tylenol or ibuprofen for pain. Prescriptions: RX: Amoxicillin 1 tab PO TID #30 tab Forms: Return to Work
[2018-10-09 13:11] VITALS: BP 111/76
== END 2018-10-09 13:12 | disposition home or self-care (01) ==
LOC: ER 11:24
DX: H60.501 Unspecified acute noninfective otitis externa, right ear (principal); H66.90 Otitis media, unspecified, unspecified ear; H92.01 Otalgia, right ear; F17.200 Nicotine dependence, unspecified, uncomplicated
CPT/HCPCS: 99282; J3490

== ENCOUNTER 2019-01-03 11:58 | Emergency (ER) | payer SELFPAY ==
[2019-01-03] MEDS ORDERED: IPRATROPIUM/ALBUTEROL 0.5-2.5 MG/3 ML AMPUL NEB ONE (12:32)
[2019-01-03] MEDS ORDERED: BENZONATATE 100 MG CAPSULE PO ONE (12:32)
--- NOTE | 2019-01-03 12:37 | ER Document Report ---
HPI - HPI Patient complains to provider of: Cough Time Seen by Provider: 01/03/19 12:27 Onset: Other - 3 weeks Onset/Duration: Persistent Quality of pain: Achy Severity: Moderate Pain Level: 3 Context: Patient presents emergency department with complaints of cough for the past 3 weeks. Patient reports she is coughing so much her back hurts. Denies other symptoms such as fever vomiting diarrhea although she does gag sometimes after coughing. Has not taken any [id number] medications to help decrease the cough. Reports history of bronchitis. Patient does smoke. Works at a [employer]. Denies history of asthma COPD. Associated Symptoms: Nonproductive cough Exacerbated by: Coughing Relieved by: Denies Similar symptoms previously: Yes Recently seen / treated by doctor: No - REPRODUCTIVE Reproductive: DENIES: : - DERM Skin Color: Normal Past Medical History - General Information source: Patient Last Menstrual Period: Irregular - Social History Smoking Status: Current Every Day Smoker Cigarette use (# per day): Yes Chew tobacco use (# tins/day): No Frequency of alcohol use: None Drug Abuse: None Occupation: [employer] Family History: Arthritis, COPD, Hyperlipidemia, Hypertension, Thyroid Disfunction. denies: CAD, CVA, DM, Malignancy Patient has suicidal ideation: No Patient has homicidal ideation: No Pulmonary Medical History: Reports: Hx Bronchitis Renal/ Medical History: Reports: Hx Ovarian Cysts. Denies: Hx Peritoneal Dialysis Musculoskeletal Medical History: Reports Hx Musculoskeletal Deformity, Reports Hx Musculoskeletal Trauma Psychiatric Medical History: Reports: Hx Anxiety, Hx Depression Past Surgical History: Reports: Hx Adenoidectomy, Hx Tonsillectomy - Immunizations Immunizations up to date: Yes Hx Diphtheria, Pertussis, Tetanus Vaccination: Yes Vertical Provider Document - CONSTITUTIONAL Agree With Documented VS: Yes Exam Limitations: No Limitations General Appearance: WD/WN, No Apparent Distress - INFECTION CONTROL TRAVEL OUTSIDE OF THE [place] IN LAST 30 DAYS: No - HEENT HEENT: Atraumatic, Normocephalic. negative: Pharyngeal Exudate, Pharyngeal Erythema, Tympanic Membrane Red - NECK Neck: Normal Inspection, Supple. negative: Lymphadenopathy-Left, Lymphadenopathy-Right - RESPIRATORY Respiratory: No Respiratory Distress, Rhonchi, Wheezing - CARDIOVASCULAR Cardiovascular: Regular Rate - MUSCULOSKELETAL/EXTREMETIES Musculoskeletal/Extremeties: NIESHA SORIANO - NEURO Level of Consciousness: Awake, Alert, Appropriate Motor/Sensory: No Motor Deficit - DERM Integumentary: Warm, Dry Course - Re-evaluation Re-evalutation: 01/03/19 12:35 Patient appears healthy occasional cough noted during interview and assessment. speaks in full sentences, no distress noted. will evaluate with chest x-ray provide neb treatment urine test to check for plan to treat with steroids and inhaler. Also instructed patient to quit smoking. 01/03/19 13:29 Chest x-ray negative urine negative will treat with steroids and inhaler. - Vital Signs Vital signs: Temp Pulse Resp BP Pulse Ox 98.4 F 90 16 114/70 96 01/03/19 12:10 01/03/19 12:10 01/03/19 12:10 01/03/19 12:10 01/03/19 12:10 - Diagnostic Test Radiology reviewed: Image reviewed, Reports reviewed Discharge - Discharge Clinical Impression: Cough Condition: Stable Disposition: HOME, SELF-CARE Instructions: Bronchodilators ([facility]), Stop Smoking ([facility]), Steroid Medication, Tessalon Perles ([facility]) Additional Instructions: *You have been evaluated for cough *quit smoking *Increase fluid intake as discussed *Take medication as prescribed, use inhaler as indicated *Monitor your temperature, take Tylenol as indicated *Follow up with a primary care provider within 5 days *Return to ED for worsening condition, changes, needs Prescriptions: Benzonatate [Tessalon Perles 100 mg Capsule] 100 mg PO ASDIR PRN #40 capsule PRN Reason: Prednisone [Deltasone 10 mg Tablet] 10 mg PO ASDIR PRN #21 tablet PRN Reason: Forms: Smoking Cessation Education, Return to Work
--- NOTE | 2019-01-03 13:04 | RADIOLOGY REPORT (SQ) ---
EXAM DESCRIPTION: CHEST 2 VIEWS COMPLETED DATE/TIME: 01/03/2019 12:55 pm REASON FOR STUDY: cough COMPARISON: 05/16/2018 EXAM PARAMETERS: NUMBER OF VIEWS: two views TECHNIQUE: Digital Frontal and Lateral radiographic views of the chest acquired. RADIATION DOSE: NA LIMITATIONS: none FINDINGS: LUNGS AND PLEURA: No opacities, masses or pneumothorax. No pleural effusion. MEDIASTINUM AND HILAR STRUCTURES: No masses or contour abnormalities. HEART AND VASCULAR STRUCTURES: Heart normal size. No evidence for failure. BONES: No acute findings. HARDWARE: None in the chest. OTHER: No other significant finding. IMPRESSION: NO ACUTE RADIOGRAPHIC FINDING IN THE CHEST. TECHNICAL DOCUMENTATION: JOB ID: [id number] [employer]- All Rights Reserved Reading location - IP/workstation name: [email or web address]
[2019-01-03 13:12] LABS: APPEARANCE,URINE CLOUDY; BILIRUBIN,URINE NEGATIVE (NEGATIVE); COLOR,URINE YELLOW; GLUCOSE, URINE NEGATIVE (NEGATIVE); KETONES,URINE NEGATIVE (NEGATIVE); LEUKOCYTE ESTERASE,URINE LARGE (NEGATIVE); NITRITE,URINE NEGATIVE (NEGATIVE); PROTEIN,URINE NEGATIVE (NEGATIVE); URINE SPECIFIC GRAVITY 1.017; UROBILINOGEN,URINE NEGATIVE mg/dL (<2.0)
[2019-01-03] MEDS ORDERED: ALBUTEROL SULFATE HFA (90 MCG/PUFF) 8 GM MDI (1 MDI/ER DISP) IH ONE (13:32)
[2019-01-03 13:43] VITALS: BP 105/74
== END 2019-01-03 13:41 | disposition home or self-care (01) ==
LOC: ER 11:58
DX: R05 Cough (principal); F17.210 Nicotine dependence, cigarettes, uncomplicated
CPT/HCPCS: 94640; 99283; 81025; 81001; 71046; J3490; J7620

== ENCOUNTER 2019-01-09 01:18 | Emergency (ER) | payer SELFPAY ==
[2019-01-09] MEDS ORDERED: IPRATROPIUM/ALBUTEROL 0.5-2.5 MG/3 ML AMPUL NEB ONE ×2 (02:16→03:40)
[2019-01-09] MEDS ORDERED: BENZONATATE 100 MG CAPSULE PO ONE (02:17)
--- NOTE | 2019-01-09 02:23 | ER Document Report ---
Addendum entered and electronically signed by GLYNN ARROYO FNP 01/09/19 07:53: Course - Vital Signs Vital signs: Temp Pulse Resp BP Pulse Ox 98.2 F 95 13 115/54 L 95 01/09/19 05:01 01/09/19 01:38 01/09/19 05:01 01/09/19 05:01 01/09/19 05:01 - EKG Interpretation by Me Additional EKG results interpreted by me: 01/09/19 07:52 EKG showed a normal sinus rhythm with a heart rate of 85. No ST elevation or depression noted. MA 136, QT 360, QTC 428. No ectopy noted. Addendum entered and electronically signed by GLYNN ARROYO FNP 01/09/19 07:08: Course - Re-evaluation Re-evalutation: 01/09/19 07:07 Prior to discharge, Pepito Tiwari PA-C in room for evaluation. Agrees with treatment and discharge plan. - Vital Signs Vital signs: Temp Pulse Resp BP Pulse Ox 98.2 F 95 13 115/54 L 95 01/09/19 05:01 01/09/19 01:38 01/09/19 05:01 01/09/19 05:01 01/09/19 05:01 Original Note: ED Cardiac - General Chief Complaint: Chest Pain Stated Complaint: CHEST PAIN Time Seen by Provider: 01/09/19 01:52 Mode of Arrival: Ambulatory Information source: Patient TRAVEL OUTSIDE OF THE [place] IN LAST 30 DAYS: No - HPI Notes: Patient is a 23-year-old female who reports to the emergency department for chief complaint of shortness of breath, chest pain, dry cough, and runny nose. Patient was seen here last Wednesday and diagnosed with an upper respiratory infection and was placed on steroids and Tessalon Perles for cough. Patient states that initially the Tessalon Perles were helping but she left them in her car in the melted together so she is unable to take them. Patient also reports forgetting to take her prednisone has prescribed. Last dose of prednisone was this morning where she reports she only took one. She states that the cough has become more persistent. States that the cough is dry and nonproductive. Yarely alas was also prescribed an albuterol inhaler and states that it has not been working. She has been using her nebulizer treatment 3-4 times per day due to the cough. Patient also complaint of right-sided chest pain and states that it is sharp, constant, nonradiating. Patient has also complaint of right ear pain. Patient states generally just not feeling well. - Related Data Allergies/Adverse Reactions: red dye [Red Dye] Allergy (Verified 01/03/19 12:01) sulfamethoxazole [From Septra] Allergy (Verified 01/03/19 12:01) trimethoprim [From Septra] Allergy (Verified 01/03/19 12:01) vicks vapor rub Allergy (Uncoded 01/03/19 12:01) Past Medical History - General Information source: Patient - Social History Smoking Status: Current Every Day Smoker Cigarette use (# per day): Yes - 1/2 ppd Chew tobacco use (# tins/day): No Smoking Education Provided: Yes - Smoking cessation education provided > 5 min Family History: Arthritis, COPD, Hyperlipidemia, Hypertension, Thyroid Disfunction. denies: CAD, CVA, DM, Malignancy Pulmonary Medical History: Reports: Hx Bronchitis Renal/ Medical History: Reports: Hx Ovarian Cysts. Denies: Hx Peritoneal Dialysis Musculoskeletal Medical History: Reports Hx Musculoskeletal Deformity, Reports Hx Musculoskeletal Trauma Psychiatric Medical History: Reports: Hx Anxiety, Hx Depression Past Surgical History: Reports: Hx Adenoidectomy, Hx Tonsillectomy - Immunizations Immunizations up to date: Yes Hx Diphtheria, Pertussis, Tetanus Vaccination: Yes Review of Systems - Review of Systems Constitutional: See HPI EENT: See HPI, Ear pain Cardiovascular: See HPI Respiratory: See HPI Gastrointestinal: No symptoms reported Genitourinary: No symptoms reported Female Genitourinary: No symptoms reported Musculoskeletal: No symptoms reported Skin: No symptoms reported Hematologic/Lymphatic: No symptoms reported Neurological/Psychological: No symptoms reported Physical Exam - Vital signs Vitals: Temp Pulse BP Pulse Ox 97.7 F 95 126/83 H 95 01/09/19 01:38 01/09/19 01:38 01/09/19 01:38 01/09/19 01:38 - General In distress: Mild Notes: Persistent cough throughout assessment - HEENT Head: Normocephalic Eyes: Normal Conjunctiva: Normal Pupils: PERRL Ears: Normal External canal: Normal Tympanic membrane: Normal Sinus: Normal Nasal: Clear rhinorrhea Mouth/Lips: Normal Mucous membranes: Normal Pharynx: Normal Neck: Normal - Respiratory Respiratory status: Tachypnea Chest status: Tender, Pain on movement, Pain with cough, Pain with deep breathing Breath sounds: Wheezing - Wheezing and scattered rhonchi auscultated throughout - rhonchi cleared with cough. Chest palpation: Normal - Cardiovascular Rhythm: Regular Heart sounds: Normal auscultation - Abdominal Inspection: Normal Distension: No distension Bowel sounds: Normal Tenderness: Nontender Organomegaly: No organomegaly Course - Re-evaluation Re-evalutation: 01/09/19 03:41 Upon reassessment patient appears to be feeling better. Reassessment of lung sounds reveals rhonchi which clears with cough and scattered wheezing throughout. She reports initially after having first DuoNeb feeling better. Due to patient forgetting to take her prednisone at home and noncompliance IM dose of Decadron to be ordered and given in the ER. 01/09/19 05:12 After second DuoNeb and IM Decadron patient reports feeling much better. That she still has a cough but it has improved and she has been able to doze off and on while being in the emergency department. Upon reevaluation, patient continues to clear rhonchi with cough and lung sounds coarse. Will release osbaldo ent from work for a few days for rest, prescribed albuterol inhaler, Tessalon Perles, as well as a spacer. To take ibuprofen or Tylenol as needed for pain. Patient in agreement with discharge plan. Patient encouraged to quit smoking as this can be an irritant for the bronchitis. She is also instructed to take [id number] patient. - Vital Signs Vital signs: Temp Pulse Resp BP Pulse Ox 98.2 F 95 13 115/54 L 95 01/09/19 05:01 01/09/19 01:38 01/09/19 05:01 01/09/19 05:01 01/09/19 05:01 Discharge - Discharge Clinical Impression: Bronchitis, Cough Condition: Stable Disposition: HOME, SELF-CARE Additional Instructions: YOU HAVE BEEN DIAGNOSED WITH BRONCHITIS. *INCREASE FLUIDS *STOP SMOKING *YOU HAVE BEEN PRESCRIBED TESSALON PERLES FOR COUGH YOUR PREVIOUS PRESCRIPTION WAS DAMAGED, TAKE NEEDED *RETURN TO ER IF YOU HAVE INCREASING SHORTNESS OF BREATH, CHEST PAIN, FEVER, WORSENING OF CONDITION OR ANY OTHER CONCERNING SIGNS OR SYMPTOMS *USE ALBUTEROL INHALER PRESCRIBED, YOU HAVE BEEN GIVEN A SPACER, PLEASE USE THIS WHEN USING INHALER Bronchitis You have acute bronchitis. This disease is an infection or inflammation of the air passageways in your lungs. Symptoms usually include cough, low grade fever, shortness of breath, and wheezing. The cough usually persists for a couple of weeks. Most cases of bronchitis get better without antibiotics. We prescribe antibiotics when we believe bacteria are damaging your airways, or if there's high risk the bronchitis will worsen into pneumonia. Increase your fluid intake. A cool mist humidifier may make your lungs more comfortable. An expectorant (cough medicine that loosens phlegm) can help. If you smoke, STOP!!! Recovery from bronchitis can be somewhat slow, but you should see improvement within a day or two. Repeated episodes of bronchitis may result in lung damage -- for example, chronic bronchitis, recurrent pneumonias, or emphysema. Call the doctor if you develop increasing fever, shortness of breath, chest pain, bloody sputum, or otherwise worsen. If you have not improved at all after several days, contact the physician. Prescriptions: Benzonatate [Tessalon Perles 100 mg Capsule] 100 mg PO Q8HP PRN #40 capsule PRN Reason: Forms: Return to Work
[2019-01-09] MEDS ORDERED: ACETAMINOPHEN 325 MG TABLET PO ONE (02:37)
[2019-01-09] MEDS ORDERED: DEXAMETHASONE SOD PHOS INJ 10 MG/1 ML VIAL IM ONE (03:40)
[2019-01-09] MEDS ORDERED: ALBUTEROL SULFATE HFA (90 MCG/PUFF) 8 GM MDI (1 MDI/ER DISP) IH ONE (05:18)
[2019-01-09 06:36] VITALS: BP 115/54
--- NOTE | 2019-01-09 07:01 | EKG REPORT ---
SEVERITY:- ABNORMAL ECG - SINUS RHYTHM PROBABLE LEFT VENTRICULAR HYPERTROPHY : Confirmed by: Lovely Phan 09-Jan-2019 07:00:52
== END 2019-01-09 05:20 | disposition home or self-care (01) ==
LOC: ER 01:18
DX: J40 Bronchitis, not specified as acute or chronic (principal); R05 Cough; R07.9 Chest pain, unspecified; R06.02 Shortness of breath; R09.89 Other specified symptoms and signs involving the circulatory and respiratory systems; F17.210 Nicotine dependence, cigarettes, uncomplicated
CPT/HCPCS: 93005; 99406; 94640 ×2; 99283; 96372; 93010; J1100; J3490; J7620

== ENCOUNTER 2019-02-05 12:49 | Emergency (ER) | payer SELFPAY ==
[2019-02-05] MEDS ORDERED: HYDROCODONE/ACETAMINOPHEN 5-325 MG TABLET PO ONE (13:17)
--- NOTE | 2019-02-05 13:19 | ER Document Report ---
HPI - HPI Patient complains to provider of: Low back pain Time Seen by Provider: 02/05/19 13:10 Onset: Just prior to arrival Onset/Duration: Sudden Quality of pain: Achy Pain Level: 4 Context: Patient states she slipped down 4 steps landing on her back. Patient denies any head injury or loss of consciousness. Patient denies any radiculopathy or paresthesia. Associated Symptoms: Other - Low back pain Exacerbated by: Movement Relieved by: Denies Similar symptoms previously: No Recently seen / treated by doctor: No - ROS ROS below otherwise negative: Yes Systems Reviewed and Negative: Yes All other systems reviewed and negative - CONSTITUTIONAL Constitutional: DENIES: Fever, Chills - NEURO Neurology: DENIES: Weakness - CARDIOVASCULAR Cardiovascular: DENIES: Chest pain - GASTROINTESTINAL Gastrointestinal: DENIES: Nausea, Patient vomiting - REPRODUCTIVE Reproductive: DENIES: : - MUSCULOSKELETAL Musculoskeletal: REPORTS: Back Pain. DENIES: Extremity pain, Neck Pain - DERM Skin Problems: Abrasion Past Medical History - General Information source: Patient - Social History Smoking Status: Current Every Day Smoker Smoking Education Provided: Yes Frequency of alcohol use: None Drug Abuse: None Occupation: [employer] Family History: Arthritis, COPD, Hyperlipidemia, Hypertension, Thyroid Disfunction. denies: CAD, CVA, DM, Malignancy Pulmonary Medical History: Reports: Hx Bronchitis Renal/ Medical History: Reports: Hx Ovarian Cysts. Denies: Hx Peritoneal Dialysis Musculoskeletal Medical History: Reports Hx Musculoskeletal Deformity, Reports Hx Musculoskeletal Trauma Psychiatric Medical History: Reports: Hx Anxiety, Hx Attention Deficit Hyperactivity Disorder, Hx Depression Past Surgical History: Reports: Hx Adenoidectomy, Hx Tonsillectomy - Immunizations Immunizations up to date: Yes Hx Diphtheria, Pertussis, Tetanus Vaccination: Yes Vertical Provider Document - CONSTITUTIONAL Agree With Documented VS: Yes Exam Limitations: No Limitations General Appearance: WD/WN, No Apparent Distress - INFECTION CONTROL TRAVEL OUTSIDE OF THE [place] IN LAST 30 DAYS: No - HEENT HEENT: Atraumatic, Normocephalic - NECK Neck: Normal Inspection - RESPIRATORY Respiratory: Breath Sounds Normal, No Respiratory Distress - CARDIOVASCULAR Cardiovascular: Regular Rate, Regular Rhythm - GI/ABDOMEN Gastrointestinal: Abdomen Soft - BACK Back: Abnormal Inspection - Patient with thoracolumbar back tenderness with overlying abrasion, no obvious step-off or deformity. negative: CVA Tenderness- Right, CVA Tenderness-Left - MUSCULOSKELETAL/EXTREMETIES Musculoskeletal/Extremeties: NIESHA SORIANO - NEURO Level of Consciousness: Awake, Alert, Appropriate Motor/Sensory: No Motor Deficit - DERM Integumentary: Warm, Dry Notes: Abrasion to lower back Course - Re-evaluation Re-evalutation: 02/05/19 15:15 The patient presents with low back pain without signs of spinal cord compression, cauda equina syndrome, infection, aneurysm, or other serious etiology. The patient is neurologically intact. Given the extremely risk of these diagnoses further testing and evaluation for these possibilities does not appear to be indicated at this time. Patient has been instructed to return if the symptoms worsen or change in any way. - Vital Signs Vital signs: Temp Pulse Resp BP Pulse Ox 98.8 F 84 18 127/72 H 98 02/05/19 13:04 02/05/19 13:04 02/05/19 13:04 02/05/19 13:04 02/05/19 13:04 - Laboratory Laboratory results interpreted by me: 02/05/19 15:15 Labs- Entire Visit 02/05/19 13:32 Urine HCG, Qual NEGATIVE - Diagnostic Test Radiology reviewed: Reports reviewed Discharge - Discharge Clinical Impression: Abrasion Fall Qualifiers: Encounter type: initial encounter Qualified Code(s): W19.XXXA - Unspecified fall, initial encounter Low back pain Qualifiers: Chronicity: acute Back pain laterality: unspecified Sciatica presence: without sciatica Qualified Code(s): M54.5 - Low back pain Condition: Stable Disposition: HOME, SELF-CARE Instructions: Abrasions ([facility]), Low Back Pain ([facility]) Additional Instructions: Return immediately for any new or worsening symptoms Followup with your primary care provider, call tomorrow to make a followup appointment Prescriptions: Cyclobenzaprine HCl [Flexeril 10 Mg Tablet] 10 mg PO TID #15 tablet Naproxen [Naprosyn 250 Nmg Tablet] 1 tab PO BID #14 tablet Forms: Smoking Cessation Education, Return to Work Referrals: ROBERT MCLEAN PA-C [Primary Care Provider] - Follow up as needed
--- NOTE | 2019-02-05 14:31 | RADIOLOGY REPORT (SQ) ---
EXAM DESCRIPTION: T SPINE AP/LAT; L SPINE WHOLE COMPLETED DATE/TIME: 02/05/2019 2:18 pm REASON FOR STUDY: fall down steps, low back pain/abrasion COMPARISON: None. FINDINGS: Two view thoracic spine: No fracture or significant malalignment. Soft tissues unremarka ble. Five view lumbosacral spine including obliques: Normal alignment without fracture or bone lesion. G enerally preserved discs with intact posterior elements. TECHNICAL DOCUMENTATION: JOB ID: [id number] Reading location - IP/workstation name: [email or web address]
--- NOTE | 2019-02-05 14:31 | RADIOLOGY REPORT (SQ) ---
EXAM DESCRIPTION: T SPINE AP/LAT; L SPINE WHOLE COMPLETED DATE/TIME: 02/05/2019 2:18 pm REASON FOR STUDY: fall down steps, low back pain/abrasion COMPARISON: None. FINDINGS: Two view thoracic spine: No fracture or significant malalignment. Soft tissues unremarka ble. Five view lumbosacral spine including obliques: Normal alignment without fracture or bone lesion. G enerally preserved discs with intact posterior elements. TECHNICAL DOCUMENTATION: JOB ID: [id number] Reading location - IP/workstation name: [email or web address]
[2019-02-05] MEDS ORDERED: LIDOCAINE 5% (700 MG) TRANSDERMAL ADH..PATCH TP ONE (15:09)
[2019-02-05 15:19] VITALS: BP 103/64
== END 2019-02-05 15:20 | disposition home or self-care (01) ==
LOC: ER 12:49
DX: S20.419A Abrasion of unspecified back wall of thorax, initial encounter (principal); M54.5 Low back pain; W10.9XXA Fall (on) (from) unspecified stairs and steps, initial encounter; Y92.009 Unspecified place in unspecified non-institutional (private) residence as the place of occurrence of the external cause; F17.200 Nicotine dependence, unspecified, uncomplicated
CPT/HCPCS: 72070; 72110; 81025; 99283

== ENCOUNTER 2019-03-08 17:35 | Emergency (ER) | payer SELFPAY ==
--- NOTE | 2019-03-08 18:21 | ER Document Report ---
ED Medical Screen (RME) - General Chief Complaint: Chest Pain Stated Complaint: DIZZINESS Time Seen by Provider: 03/08/19 18:15 Primary Care Provider: ROBERT MCLEAN PA-C [Primary Care Provider] - Follow up as needed Mode of Arrival: Ambulatory Information source: Patient Notes: 24-year-old female presented to ED for complaint of chest pain today. She states she has not had a. In a couple months but she has had multiple negative test. She denies any nausea vomiting shortness of breath or difficulty breathing. She states the only medical history she had her tonsils and adenoids removed. States she does smoke 1/2 pack a day but does not drink any alcohol or do any kind of street drugs. Patient is alert and oriented respirations regular and unlabored speaking in full sentences walks with a even steady gait. I have greeted and performed a rapid initial assessment of this patient. A comprehensive ED assessment and evaluation of the patient, analysis of test results and completion of medical decision making process will be conducted by an additional ED providers. Dictation of this chart was performed using voice recognition software; the refore, there may be some unintended grammatical errors. TRAVEL OUTSIDE OF THE [place] IN LAST 30 DAYS: No - Related Data Allergies/Adverse Reactions: red dye [Red Dye] Allergy (Verified 03/08/19 17:41) sulfamethoxazole [From Septra] Allergy (Verified 03/08/19 17:41) trimethoprim [From Septra] Allergy (Verified 03/08/19 17:41) vicks vapor rub Allergy (Uncoded 03/08/19 17:41) Past Medical History - Social History Chew tobacco use (# tins/day): No Frequency of alcohol use: Rare Drug Abuse: None Pulmonary Medical History: Reports: Hx Bronchitis Renal/ Medical History: Reports: Hx Ovarian Cysts. Denies: Hx Peritoneal Dialysis Musculoskeltal Medical History: Reports Hx Musculoskeletal Deformity, Reports Hx Musculoskeletal Trauma Psychiatric Medical History: Reports: Hx Anxiety, Hx Attention Deficit Hyperactivity Disorder, Hx Depression Past Surgical History: Reports: Hx Adenoidectomy, Hx Tonsillectomy - t and a - Immunizations Immunizations up to date: Yes Hx Diphtheria, Pertussis, Tetanus Vaccination: Yes Physical Exam - Vital signs Vitals: Temp Pulse Resp BP Pulse Ox 98.7 F 71 15 111/65 98 03/08/19 17:57 03/08/19 17:57 03/08/19 17:57 03/08/19 17:57 03/08/19 17:57 Course - Vital Signs Vital signs: Temp Pulse Resp BP Pulse Ox 98.7 F 71 15 111/65 98 03/08/19 17:57 03/08/19 17:57 03/08/19 17:57 03/08/19 17:57 03/08/19 17:57 Doctor's Discharge - Discharge Referrals: ROBERT MCLEAN PA-C [Primary Care Provider] - Follow up as needed
--- NOTE | 2019-03-08 18:21 | EKG REPORT ---
SEVERITY:- NORMAL ECG - SINUS RHYTHM : Confirmed by: Harry Arzate MD 08-Mar-2019 18:19:44
--- NOTE | 2019-03-08 18:53 | RADIOLOGY REPORT (SQ) ---
EXAM DESCRIPTION: CHEST 2 VIEWS COMPLETED DATE/TIME: 03/08/2019 6:27 pm REASON FOR STUDY: chest pain COMPARISON: 01/03/2019 EXAM PARAMETERS: NUMBER OF VIEWS: two views TECHNIQUE: Digital Frontal and Lateral radiographic views of the chest acquired. RADIATION DOSE: NA LIMITATIONS: none FINDINGS: LUNGS AND PLEURA: No opacities, masses or pneumothorax. No pleural effusion. MEDIASTINUM AND HILAR STRUCTURES: No masses or contour abnormalities. HEART AND VASCULAR STRUCTURES: Heart normal size. No evidence for failure. BONES: No acute findings. HARDWARE: None in the chest. OTHER: No other significant finding. IMPRESSION: NO ACUTE RADIOGRAPHIC FINDING IN THE CHEST. TECHNICAL DOCUMENTATION: JOB ID: [id number] [employer]- All Rights Reserved Reading location - IP/workstation name: [email or web address]
[2019-03-08 19:11] LABS: ABSOLUTE BASOPHILS # (AUTO) 0.1 10^3/uL (0.0-0.2); ABSOLUTE EOSINOPHILS # (AUTO) 0.5 10^3/uL (0.0-0.6); ABSOLUTE LYMPHOCYTES (AUTO) 3.5 10^3/uL (0.5-4.7); ABSOLUTE MONOCYTES (AUTO) 0.7 10^3/uL (0.1-1.4); ABSOLUTE NEUT (AUTO) 5.9 10^3/uL (1.7-8.2); EOSINOPHILS % (AUTO) 4.8 % (0-6); HEMATOCRIT 44.8 % (36.0-47.0); HEMOGLOBIN 15.6 g/dL (12.0-15.5); LYMPHOCYTES % (AUTO) 32.6 % (13-45); MEAN CORPUSCULAR HEMOGLOBIN 30.2 pg (27.0-33.4); MEAN CORPUSCULAR HGB CONC 34.9 g/dL (32.0-36.0); MEAN CORPUSCULAR VOLUME 86 fl (80-97); MONOCYTES % (AUTO) 6.4 % (3-13); PLATELET COUNT 282 10^3/uL (150-450); RED BLOOD COUNT 5.18 10^6/uL (3.72-5.28); RED CELL DISTRIBUTION WIDTH 12.6 % (11.5-14.0); SEGMENTED NEUTROPHILS % (AUTO) 55.2 % (42-78); TOTAL CELLS COUNTED % (AUTO) 100 %; WHITE BLOOD COUNT 10.6 10^3/uL (4.0-10.5)
[2019-03-08 19:29] LABS: APPEARANCE,URINE CLOUDY; BILIRUBIN,URINE NEGATIVE (NEGATIVE); COLOR,URINE YELLOW; GLUCOSE, URINE NEGATIVE (NEGATIVE); KETONES,URINE NEGATIVE (NEGATIVE); LEUKOCYTE ESTERASE,URINE LARGE (NEGATIVE); NITRITE,URINE NEGATIVE (NEGATIVE); PROTEIN,URINE NEGATIVE (NEGATIVE); URINE SPECIFIC GRAVITY 1.021; UROBILINOGEN,URINE NEGATIVE mg/dL (<2.0)
[2019-03-08 19:30] LABS: ALANINE AMINOTRANSFERASE 24 U/L (9-52); ALBUMIN 4.6 g/dL (3.5-5.0); ANION GAP 8 (5-19); ASPARTATE AMINO TRANSFERASE 32 U/L (14-36); BILIRUBIN,DIRECT 0.2 mg/dL (0.0-0.4); BILIRUBIN,TOTAL 0.3 mg/dL (0.2-1.3); BLOOD UREA NITROGEN 15 mg/dL (7-20); CALCIUM 9.8 mg/dL (8.4-10.2); CARBON DIOXIDE 28 mmol/L (22-30); CHLORIDE 106 mmol/L (98-107); GLUCOSE 78 mg/dL (75-110); LIPASE 117.8 U/L (23-300); NEONATAL BILIRUBIN RESULT 0.1 mg/dL (0.1-1.1); POTASSIUM 4.7 mmol/L (3.6-5.0); SODIUM 141.8 mmol/L (137-145)
[2019-03-08 19:31] LABS: ALKALINE PHOSPHATASE 76 U/L (38-126)
[2019-03-08 19:42] LABS: CREATINE KINASE MB 0.59 ng/mL (<4.55)
[2019-03-08 19:45] LABS: TROPONIN I < 0.012 ng/mL
--- NOTE | 2019-03-08 22:15 | ER Document Report ---
ED General - General Chief Complaint: Chest Pain Stated Complaint: DIZZINESS Time Seen by Provider: 03/08/19 18:15 Primary Care Provider: ROBERT MCLEAN PA-C [PHYSICIAN COMPLIANCE COORDINATOR] - Follow up in 3-5 days Mode of Arrival: Ambulatory Notes: Patient is a 24 year old female that presents to the emergency department for chief complaint of lightheadedness and chest pain. Patient states that earlier yesterday and today she's a couple episodes where she felt rather dizzy and lightheaded, then today she felt like there was a knot in the epigastric region, that radiated up towards the chest. she currently writes the pain is of 1 into 10, described as an aching sensation, denies any nausea, vomiting, diaphoresis or shortness of breath. She said she hasn't more congested recently and that fullness in her right ear, but then has any fevers associated. She's a used a few over the counter medications to help with her sinuses. She said she was recently diagnosed with bronchitis, is prescribed an inhaler, but has not been using it recently. risk factors for early coronary disease, no family history of early coronary disease. Past Medical History: ADHD Past Surgical History: Tonsillectomy Social History: Admits to smoking cigarettes, denies ETOH, or illicit drug use. Family History: Reviewed and noncontributory for presenting illness Allergies: Reviewed, see documented allergy list. REVIEW OF SYSTEMS: Other than noted above, the 12 point review of systems was reviewed with the p atient and were negative, all pertinent findings are included in the HPI. PHYSICAL EXAMINATION: Vital signs reviewed, nursing noted reviewed. GENERAL: Well-appearing, well-nourished and in no acute distress. HEAD: Atraumatic, normocephalic. EYES: Eyes appear normal, extraocular movements intact, sclera anicteric, conjunctiva are normal. ENT: nares patent, oropharynx clear without exudates. Moist mucous membranes. Right TM is erythematous with effusion present, left TM appear normal, mild front sinus tenderness with palpation. NECK: Normal range of motion, supple without lymphadenopathy LUNGS: Bilateral wheezing noted throughout all lung valencia, no respiratory distress. HEART: Regular rate and rhythm without murmurs ABDOMEN: Soft, nontender, normoactive bowel sounds. No rebound, guarding, or rigidity. No masses appreciated. EXTREMITIES: Nontender, good range of motion, no pitting or edema. NEUROLOGICAL: No focal neurological deficits. Moves all extremities spontaneous ly Motor and sensory grossly intact on exam. PSYCH: Normal mood, normal affect. SKIN: Warm, Dry, normal turgor, no rashes or lesions noted on exposed skin TRAVEL OUTSIDE OF THE [place] IN LAST 30 DAYS: No - Related Data Allergies/Adverse Reactions: red dye [Red Dye] Allergy (Verified 03/08/19 17:41) sulfamethoxazole [From Septra] Allergy (Verified 03/08/19 17:41) trimethoprim [From Septra] Allergy (Verified 03/08/19 17:41) vicks vapor rub Allergy (Uncoded 03/08/19 17:41) Past Medical History - General Information source: Patient - Social History Smoking Status: Current Every Day Smoker Chew tobacco use (# tins/day): No Frequency of alcohol use: Rare Drug Abuse: None Family History: Arthritis, COPD, Hyperlipidemia, Hypertension, Thyroid Disfunction. denies: CAD, CVA, DM, Malignancy Patient has suicidal ideation: No Patient has homicidal ideation: No Pulmonary Medical History: Reports: Hx Bronchitis Renal/ Medical History: Reports: Hx Ovarian Cysts. Denies: Hx Peritoneal Dialysis Musculoskeletal Medical History: Reports Hx Musculoskeletal Deformity, Reports Hx Musculoskeletal Trauma Psychiatric Medical History: Reports: Hx Anxiety, Hx Attention Deficit Hyperactivity Disorder, Hx Depression Past Surgical History: Reports: Hx Adenoidectomy, Hx Tonsillectomy - t and a - Immunizations Immunizations up to date: Yes Hx Diphtheria, Pertussis, Tetanus Vaccination: Yes Physical Exam - Vital signs Vitals: Temp Pulse Resp BP Pulse Ox 98.7 F 71 15 111/65 98 03/08/19 17:57 03/08/19 17:57 03/08/19 17:57 03/08/19 17:57 03/08/19 17:57 Course - Re-evaluation Re-evalutation: Patients seen and examined, vital signs reviewed, On exam the patient appears well, she wasn't no acute distress she had mild wheezing noted, and effusion in her right ear, concerning for otitis media. Her work up was unremarkable, bloodwork was unremarkable, no anemia, troponin negative, EKG nonischemic pattern as noted, chest x-ray negative. Patient was feeling well after discussing results with her, recommended continue to use albuterol inhaler, will prescribe Augmentin, for her otitis media, which is likely contributing to the patients dizziness and vertigo symptoms, and have her follow up with her primary care, also does [id number] decongestants. Patient agreed with plan of care and was discharged to home. Laboratory 03/08/19 03/08/19 03/08/19 18:44 18:44 18:44 WBC 10.6 H RBC 5.18 Hgb 15.6 H Hct 44.8 MCV 86 MCH 30.2 MCHC 34.9 RDW 12.6 Plt Count 282 Seg Neutrophils % 55.2 Lymphocytes % 32.6 Monocytes % 6.4 Eosinophils % 4.8 Basophils % 1.0 Absolute Neutrophils 5.9 Absolute Lymphocytes 3.5 Absolute Monocytes 0.7 Absolute Eosinophils 0.5 Absolute Basophils 0.1 Sodium 141.8 Potassium 4.7 Chloride 106 Carbon Dioxide 28 Anion Gap 8 BUN 15 Creatinine 0.74 Est GFR ( Amer) > 60 Est GFR (Non-Af Amer) > 60 Glucose 78 Calcium 9.8 Total Bilirubin 0.3 Direct Bilirubin 0.2 Neonat Total Bilirubin 0.1 Neonat Direct Bilirubin 0.0 Neonat Indirect Bili 0.1 AST 32 ALT 24 Alkaline Phosphatase 76 CK-MB (CK-2) Troponin I Total Protein 8.0 Albumin 4.6 Lipase 117.8 Serum HCG, Qual NEGATIVE Urine Color Urine Appearance Urine pH Ur Specific [place] Urine Protein Urine Glucose (UA) Urine Ketones Urine Blood Urine Nitrite Urine Bilirubin Urine Urobilinogen Ur Leukocyte Esterase Urine WBC (Auto) Urine RBC (Auto) Urine Bacteria (Auto) Squamous Epi Cells Auto Urine Mucus (Auto) Urine Ascorbic Acid 03/08/19 03/08/19 18:44 18:44 WBC RBC Hgb Hct MCV MCH MCHC RDW Plt Count Seg Neutrophils % Lymphocytes % Monocytes % Eosinophils % Basophils % Absolute Neutrophils Absolute Lymphocytes Absolute Monocytes Absolute Eosinophils Absolute Basophils Sodium Potassium Chloride Carbon Dioxide Anion Gap BUN Creatinine Est GFR ( Amer) Est GFR (Non-Af Amer) Glucose Calcium Total Bilirubin Direct Bilirubin Neonat Total Bilirubin Neonat Direct Bilirubin Neonat Indirect Bili AST ALT Alkaline Phosphatase CK-MB (CK-2) 0.59 Troponin I < 0.012 Total Protein Albumin Lipase Serum HCG, Qual Urine Color YELLOW Urine Appearance CLOUDY Urine pH 5.0 Ur Specific [place] 1.021 Urine Protein NEGATIVE Urine Glucose (UA) NEGATIVE Urine Ketones NEGATIVE Urine Blood NEGATIVE Urine Nitrite NEGATIVE Urine Bilirubin NEGATIVE Urine Urobilinogen NEGATIVE Ur Leukocyte Esterase LARGE H Urine WBC (Auto) 7 Urine RBC (Auto) 8 Urine Bacteria (Auto) TRACE Squamous Epi Cells Auto 44 Urine Mucus (Auto) RARE Urine Ascorbic Acid NEGATIVE Chest X-Ray 03/08/19 18:20 IMPRESSION: NO ACUTE RADIOGRAPHIC FINDING IN THE CHEST. 03/09/19 15:20 - Vital Signs Vital signs: Temp Pulse Resp BP Pulse Ox 98.1 F 79 17 119/75 100 03/08/19 23:00 03/08/19 23:00 03/08/19 23:00 03/08/19 23:00 03/08/19 23:00 - Laboratory Result Diagrams: 03/08/19 18:44 03/08/19 18:44 Laboratory results interpreted by me: 03/08/19 03/08/19 18:44 18:44 WBC 10.6 H Hgb 15.6 H Ur Leukocyte Esterase LARGE H - EKG Interpretation by Me Additional EKG results interpreted by me: EKG demonstrates sinus rhythm with a ventricular rate of 72 bpm, normal axis, normal intervals, no evidence of acute ischemia in this EKG, this is compared with a prior EKG from 01/09/2019, without significant change. Discharge - Discharge Clinical Impression: Lightheadedness Right otitis media Qualifiers: Otitis media type: suppurative Chronicity: acute Recurrence: not specified as recurrent Spontaneous tympanic membrane rupture: without spontaneous rupture Qualified Code(s): H66.001 - Acute suppurative otitis media without spontaneous rupture of ear drum, right ear Condition: Stable Disposition: HOME, SELF-CARE Instructions: Otitis Media ([facility]) Additional Instructions: Please use your albuterol inhaler, 2 puffs at least 3-4 times daily over the next 3 to 5 days to help with your breathing and wheezing. Prescriptions: Amox Tr/Potassium Clavulanate [Augmentin 875-125 Tablet] 1 tab PO BID 10 Days #2 0 tablet Forms: Return to Work Referrals: ROBERT MCLEAN PA-C [PHYSICIAN COMPLIANCE COORDINATOR] - Follow up in 3-5 days
[2019-03-08 23:43] VITALS: BP 119/75
== END 2019-03-08 23:10 | disposition home or self-care (01) ==
LOC: ER 17:35
DX: R42 Dizziness and giddiness (principal); H66.001 Acute suppurative otitis media without spontaneous rupture of ear drum, right ear; R07.9 Chest pain, unspecified; R06.2 Wheezing; F17.210 Nicotine dependence, cigarettes, uncomplicated; Z91.048 Other nonmedicinal substance allergy status; Z88.1 Allergy status to other antibiotic agents; Z88.8 Allergy status to other drugs, medicaments and biological substances
CPT/HCPCS: 36415; 71046; 80053; 81001; 82553; 83690; 84484; 84703; 85025; 93005; 93010; 99284

== ENCOUNTER 2019-06-14 11:38 | Emergency (ER) | payer MEDICAID ==
[2019-06-14 11:56] VITALS: BP 106/63
--- NOTE | 2019-06-14 12:34 | ER Document Report ---
HPI - HPI Time Seen by Provider: 06/14/19 12:25 Pain Level: 3 Notes: Otherwise healthy 24-year-old female presenting with sore throat, cough and congestion over the last 3 days. Patient denies any fevers or body aches. She has not taken any medications for symptoms. She does report contact with other people with similar symptoms. - EENT EENT: REPORTS: Sore Throat. DENIES: Ear Pain, Eye problems - CARDIOVASCULAR Cardiovascular: DENIES: Chest pain - RESPIRATORY Respiratory: REPORTS: Coughing. DENIES: Trouble Breathing - GASTROINTESTINAL Gastrointestinal: DENIES: Abdominal Pain, Black / Bloody Stools - URINARY Urinary: DENIES: Dysuria, Urgency, Frequency - REPRODUCTIVE Reproductive: DENIES: :, Postmenopausal, Abnormal bleeding / discharge Past Medical History - General Information source: Patient - Social History Smoking Status: Current Every Day Smoker Chew tobacco use (# tins/day): No Smoking Education Provided: Yes Frequency of alcohol use: None Drug Abuse: None Family History: Arthritis, COPD, Hyperlipidemia, Hypertension, Thyroid Disfunction. denies: CAD, CVA, DM, Malignancy Patient has suicidal ideation: No Patient has homicidal ideation: No Pulmonary Medical History: Reports: Hx Bronchitis Renal/ Medical History: Reports: Hx Ovarian Cysts. Denies: Hx Peritoneal D ialysis Musculoskeletal Medical History: Reports Hx Musculoskeletal Deformity, Reports Hx Musculoskeletal Trauma Psychiatric Medical History: Reports: Hx Anxiety, Hx Attention Deficit Hyperactivity Disorder, Hx Depression Past Surgical History: Reports: Hx Adenoidectomy, Hx Tonsillectomy - t and a - Immunizations Immunizations up to date: Yes Hx Diphtheria, Pertussis, Tetanus Vaccination: Yes Vertical Provider Document - CONSTITUTIONAL Notes: PHYSICAL EXAMINATION: GENERAL: Well-appearing, well-nourished and in no acute distress. HEAD: Atraumatic, normocephalic. EYES: Pupils equal round extraocular movements intact, conjunctiva are normal. ENT: Nares patent, oropharynx mildly erythematous, mild tonsillar swelling but without exudates. Uvula midline, no evidence of peritonsillar abscess. NECK: Normal range of motion, cervical lymphadenopathy noted. LUNGS: No respiratory distress, bronchospasm with deep cough, lungs are clear and equal bilaterally however with no wheezes or rhonchi. Musculoskeletal: Normal range of motion NEUROLOGICAL: Normal speech, normal gait. PSYCH: Normal mood, normal affect. SKIN: Warm, Dry, normal turgor, no rashes or lesions noted. - INFECTION CONTROL TRAVEL OUTSIDE OF THE [place] IN LAST 30 DAYS: No Course - Re-evaluation Re-evalutation: Exam consistent with viral upper respiratory illness. Patient appears well nontoxic has had symptoms for 2 days, and has not had fever. Rapid strep was negative. Throat culture pending. She will be discharged home with instructions on symptomatic treatment. No antibiotic indication at this time. The patient's emergency department workup and current diagnosis were explained to the patient and or family. Follow-up instructions were provided. Medications if prescribed were discussed. Instructions for when to return to the emergency department including specific worrisome symptoms were discussed with the patient and/or family. - Vital Signs Vital signs: Temp Pulse Resp BP Pulse Ox 98.9 F 92 18 106/63 96 06/14/19 11:55 06/14/19 11:55 06/14/19 11:55 06/14/19 11:55 06/14/19 11:55 Discharge - Discharge Clinical Impression: Viral URI Condition: Stable Disposition: HOME, SELF-CARE Additional Instructions: Your symptoms are most likely due to a viral infection it should resolve over the next 7-14 days. Please purchase an [id number] cough/cold medicine that aligns with your symptoms. For nasal congestion: I would recommend that you get [id number] oxymetazoline also known is afrin. Use only per bottle instructions and be sure to never use this for more than 3 days if you can develop severe rebound congestion. Take the prednisone as prescribed. You may also use tylenol or ibuprofen as needed for aches and throat discomfort. Please be sure to drink plenty of fluids and get rest. Return to the emergency department if you began having difficulty breathing, chest pain, persistent vomiting, or any other symptoms that are concerning to you. Prescriptions: Prednisone [Deltasone 20 mg Tablet] 3 tab PO DAILY 5 Days #15 tablet Forms: Return to Work
== END 2019-06-14 13:33 | disposition home or self-care (01) ==
LOC: ER 11:38
DX: J06.9 Acute upper respiratory infection, unspecified (principal); B97.89 Other viral agents as the cause of diseases classified elsewhere; J02.9 Acute pharyngitis, unspecified; R05 Cough; R09.81 Nasal congestion; F17.200 Nicotine dependence, unspecified, uncomplicated
CPT/HCPCS: 87070; 87880; 99283

== ENCOUNTER 2019-06-25 10:39 | Emergency (ER) | payer MEDICAID ==
[2019-06-25 10:44] VITALS: BP 117/64
--- NOTE | 2019-06-25 11:11 | ER Document Report ---
HPI - HPI Time Seen by Provider: 06/25/19 10:55 Pain Level: 3 Notes: Patient is a 24-year-old female with no significant past medical history who presents complaining of a sore throat that is been relatively intermittent for the past 1.5 weeks. Patient states on occasion she feels like her throat wants to swell on her, but never does. She is able to eat and drink without difficulty. She is urinating normally. She has no other concerns or complaints. She does have a history of tonsillectomy. Denies any headache, fever, neck pain, excessive drooling, hoarseness, URI, chest pain, palpitations, syncope, cough, shortness of breath, wheeze, dyspnea, abdominal pain, nausea/vomiting/diarrhea, urinary retention, dysuria, hematuria, or rash. - ROS Systems Reviewed and Negative: Yes All other systems reviewed and negative - REPRODUCTIVE Reproductive: DENIES: : Past Medical History - Social History Smoking Status: Current Every Day Smoker Chew tobacco use (# tins/day): No Frequency of alcohol use: None Drug Abuse: None Family History: Arthritis, COPD, Hyperlipidemia, Hypertension, Thyroid Disfunction. denies: CAD, CVA, DM, Malignancy Patient has suicidal ideation: No Patient has homicidal ideation: No Pulmonary Medical History: Reports: Hx Bronchitis Renal/ Medical History: Reports: Hx Ovarian Cysts. Denies: Hx Peritoneal Dialysis Musculoskeletal Medical History: Reports Hx Musculoskeletal Deformity, Reports Hx Musculoskeletal Trauma Psychiatric Medical History: Reports: Hx Anxiety, Hx Attention Deficit Hyperactivity Disorder, Hx Depression Past Surgical History: Reports: Hx Adenoidectomy, Hx Tonsillectomy - t and a - Immunizations Immunizations up to date: Yes Hx Diphtheria, Pertussis, Tetanus Vaccination: Yes Vertical Provider Document - CONSTITUTIONAL Agree With Documented VS: Yes Notes: PHYSICAL EXAMINATION: GENERAL: Well-appearing, well-nourished and in no acute distress. A&Ox4. Answers questions appropriately. Moves comfortably w/o notable distress HEAD: Atraumatic, normocephalic. EYES: Pupils equal round and reactive to light, extraocular movements intact, sclera anicteric, conjunctiva are normal. ENT: EAC clear b/l. TM's intact b/l without erythema, fluid, or perforation. Nares patent and with clear discharge. oropharynx mild erythema without exudates. Tonsils absent. No palatine shift. Uvula midline. No tongue protrusion. No drooling, hoarseness, or airway compromise. Moist mucous membranes. No sinus tenderness. NECK: Normal range of motion, supple without lymphadenopathy. No rigidity/meningismus. LUNGS: Breath sounds clear to auscultation bilaterally and equal. No wheezes rales or rhonchi. No retractions HEART: Regular rate and rhythm without murmurs, rubs, gallops. NEUROLOGICAL: Normal speech, normal gait. PSYCH: Normal mood, normal affect. SKIN: Warm, Dry, normal turgor, no rashes or lesions noted. - INFECTION CONTROL TRAVEL OUTSIDE OF THE [place] IN LAST 30 DAYS: No Course - Re-evaluation Re-evalutation: 06/25/19 Patient is an afebrile, well-hydrated, 24-year-old female who presents with a sore throat, suspect viral. Vitals are acceptable without significant tachycardia, tachypnea, or hypoxia. PE is otherwise unremarkable. Patient is nontoxic-appearing and is tolerating p.o. without difficulty. Rapid strep negative with culture pending. Decadron was given IM today. No further work-up warranted. Low suspicion for any meningitis, sepsis, peritonsillar/pharyngeal abscess, respiratory compromise, Abhilash's, or other emergent systemic condition at this time. Patient is aware this condition can change from initial presentation and she needs to monitor symptoms closely. Conservative measures otherwise for symptoms. Recheck with your PCM in 2-3 days. Return to the ED with any worsening/concerning symptoms otherwise as reviewed in discharge. Patient is in agreement. - Vital Signs Vital signs: Temp Pulse Resp BP Pulse Ox 99.1 F 92 16 117/64 97 06/25/19 10:43 06/25/19 10:43 06/25/19 10:43 06/25/19 10:43 06/25/19 10:43 Discharge - Discharge Clinical Impression: Sore throat Condition: Stable Disposition: HOME, SELF-CARE Instructions: Sore Throat ([facility]) Additional Instructions: Maintain adequate fluid intake Take meds as directed Salt water gargles, throat sprays, mouthwash rinse, peroxide gargles tylenol/ibuprofen as needed over the counter cold medication as needed for symptoms F/u: with your PCM in 2-3 days for a recheck Consider consult with ENT for ongoing/worsening symptoms Return to the ED with any fever, worsening pain, chest pain, neck pain/stiffness, shortness of breath, cough, drooling, trouble swallowing/breathing, abdominal pain, n/v/d, rash, or worsening/concerning symptoms otherwise. Forms: Smoking Cessation Education Referrals: NICK RODRIGUEZ DO [ASSOCIATE] - Follow up as needed
[2019-06-25] MEDS ORDERED: DEXAMETHASONE SOD PHOS INJ 10 MG/1 ML VIAL IM ONE (11:31)
== END 2019-06-25 12:06 | disposition home or self-care (01) ==
LOC: ER 10:39
DX: J02.9 Acute pharyngitis, unspecified (principal); F17.200 Nicotine dependence, unspecified, uncomplicated
CPT/HCPCS: 99283; 96372; 87070; 87880; J1100

== ENCOUNTER 2019-08-27 18:29 | Emergency (ER) | payer MEDICAID ==
[2019-08-27] MEDS ORDERED: KETOROLAC TROMETHAMINE INJ/PF 30 MG/1 ML SDV IV ONE (19:21)
[2019-08-27] MEDS ORDERED: NORMAL SALINE 1000 ML 1,000 ML IV ONE (19:21)
--- NOTE | 2019-08-27 19:24 | ER Document Report ---
ED General - General Chief Complaint: Overdose Stated Complaint: UNRESPONSIVE Time Seen by Provider: 08/27/19 18:41 TRAVEL OUTSIDE OF THE [place] IN LAST 30 DAYS: No - HPI Notes: Patient is a 24-year-old female brought into the emergency department for evaluation after an apparent overdose. She states that she had "an 80 bitty part of what I thought was a Percocet." She states she crushed it and snorted it, with hopes of helping her hip pain. Her hip is bothering her because she now has a 5 speed car, and pushing the clutch has aggravated her pain there. She admits that she had a "problem with pain pills" about 5 years ago. She denies use of any other drugs. She states now she has a headache. She did have some emesis after she was administered 6 mg of Narcan by EMS. - Related Data Allergies/Adverse Reactions: red dye [Red Dye] Allergy (Verified 06/25/19 10:54) sulfamethoxazole [From Septra] Allergy (Verified 06/25/19 10:54) trimethoprim [From Septra] Allergy (Verified 06/25/19 10:54) vicks vapor rub Allergy (Uncoded 06/25/19 10:54) Home Medications: Adderall Past Medical History - General Information source: Patient - Social History Smoking Status: Current Every Day Smoker Drug Abuse: Prescription drugs Family History: Arthritis, COPD, Hyperlipidemia, Hypertension, Thyroid Disfunction. denies: CAD, CVA, DM, Malignancy Patient has suicidal ideation: No Patient has homicidal ideation: No Pulmonary Medical History: Reports: Hx Bronchitis Renal/ Medical History: Reports: Hx Ovarian Cysts. Denies: Hx Peritoneal Dialysis Musculoskeletal Medical History: Reports Hx Musculoskeletal Deformity, Reports Hx Musculoskeletal Trauma Psychiatric Medical History: Reports: Hx Anxiety, Hx Attention Deficit Hyperactivity Disorder, Hx Depression Past Surgical History: Reports: Hx Adenoidectomy, Hx Tonsillectomy - t and a - Immunizations Immunizations up to date: Yes Hx Diphtheria, Pertussis, Tetanus Vaccination: Yes Review of Systems - Review of Systems Constitutional: No symptoms reported EENT: No symptoms reported Cardiovascular: No symptoms reported Respiratory: No symptoms reported Gastrointestinal: No symptoms reported Genitourinary: No symptoms reported Musculoskeletal: See HPI Skin: No symptoms reported Neurological/Psychological: See HPI Physical Exam - Vital signs Vitals: Temp Pulse Resp BP Pulse Ox 97.8 F 102 H 20 122/84 100 08/27/19 18:33 08/27/19 18:33 08/27/19 18:33 08/27/19 18:33 08/27/19 18:33 - Notes Notes: Vital signs reviewed, please refer to chart. Head is normocephalic, atraumatic. Pupils equal round, reactive to light. Neck is supple without meningismus. Heart is regular rate and rhythm. Lungs are clear to auscultation bilaterally. Abdomen is soft, nontender, normoactive bowel sounds throughout. Extremities without cyanosis, clubbing. Posterior calves are nontender. Peripheral pulses are equal. Skin is warm and dry. No obvious deformity of the hips. Full range of motion, neurovascularly intact distally. Patient is awake, alert, oriented x3. Cranial nerves II - XII are grossly intact without focal neurological deficits. Strength is plus 5 out of 5 bilateral upper and lower extremities. Sensation is intact. Reflexes symmetrical. Intact [id number], rapid alternating movements, [id number]. Course - Re-evaluation Re-evalutation: 08/27/19 19:24 Patient presents emergency department for evaluation after an apparent overdose. She had been administered Narcan in the field. Her respiratory rate is normal. She did have some emesis, but it is noted that it was after her resuscitation. Her lungs are clear and she is oxygenating well. I did again give her fluids and Toradol to help her with her hip and head pain. Laboratory investigations pending, we will continue to monitor. 08/27/19 21:14 Patient has remained stable throughout the course the stay. She did get nausea gabbie again, so Zofran was ordered. She has not had any further emesis. She is already going to seek out outpatient treatment for her drug issues. She was given resources already prior to arrival. I will send her home with some Zofran and close follow-up. She is to return to the ED with worsening. - Vital Signs Vital signs: Temp Pulse Resp BP Pulse Ox 97.7 F 84 20 118/81 98 08/27/19 21:08 08/27/19 21:08 08/27/19 21:08 08/27/19 21:08 08/27/19 21:08 - Laboratory Result Diagrams: 08/27/19 19:15 08/27/19 19:15 Laboratory results interpreted by me: 08/27/19 08/27/19 08/27/19 19:15 19:15 20:00 WBC 11.1 H Absolute Neuts (auto) 8.5 H Glucose 131 H Urine Protein 100 H Urine Ketones TRACE H Urine Urobilinogen 2.0 H Ur Leukocyte Esterase TRACE H Salicylates < 1.0 L Acetaminophen < 10 L - EKG Interpretation by Me Additional EKG results interpreted by me: 08/27/19 19:25 Sinus tachycardia with rate of 104 bpm. Normal axis and intervals. Nonspecific ST changes, but no acute changes concerning for ischemia or infarction. Discharge - Discharge Clinical Impression: Opiate overdose Condition: Stable Disposition: HOME, SELF-CARE Instructions: Instructions for Home Care Following a Drug Overdose ([facility]), Overdose ([facility]) Additional Instructions: Please seek out further care for drug addiction issues. Follow-up with primary care next week. Return to the ED with worsening or new concerning symptoms of any sort.
[2019-08-27 19:25] LABS: ABSOLUTE BASOPHILS # (AUTO) 0.1 10^3/uL (0.0-0.2); ABSOLUTE EOSINOPHILS # (AUTO) 0.1 10^3/uL (0.0-0.6); ABSOLUTE LYMPHOCYTES (AUTO) 1.7 10^3/uL (0.5-4.7); ABSOLUTE MONOCYTES (AUTO) 0.7 10^3/uL (0.1-1.4); ABSOLUTE NEUT (AUTO) 8.5 10^3/uL (1.7-8.2); BASOPHILS % (AUTO) 0.5 % (0-2); EOSINOPHILS % (AUTO) 1.1 % (0-6); HEMATOCRIT 41.7 % (36.0-47.0); HEMOGLOBIN 14.1 g/dL (12.0-15.5); LYMPHOCYTES % (AUTO) 15.6 % (13-45); MEAN CORPUSCULAR HEMOGLOBIN 29.5 pg (27.0-33.4); MEAN CORPUSCULAR HGB CONC 33.9 g/dL (32.0-36.0); MEAN CORPUSCULAR VOLUME 87 fl (80-97); PLATELET COUNT 228 10^3/uL (150-450); RED BLOOD COUNT 4.79 10^6/uL (3.72-5.28); RED CELL DISTRIBUTION WIDTH 12.6 % (11.5-14.0); SEGMENTED NEUTROPHILS % (AUTO) 76.8 % (42-78); TOTAL CELLS COUNTED % (AUTO) 100 %; WHITE BLOOD COUNT 11.1 10^3/uL (4.0-10.5)
[2019-08-27 19:42] LABS: ACETAMINOPHEN < 10 ug/mL (10-30); ALBUMIN 4.5 g/dL (3.5-5.0); ALCOHOL < 10 mg/dL (NONE DETECTED); ALKALINE PHOSPHATASE 66 U/L (38-126); ANION GAP 12 (5-19); ASPARTATE AMINO TRANSFERASE 30 U/L (14-36); BILIRUBIN,DIRECT 0.1 mg/dL (0.0-0.4); BILIRUBIN,TOTAL 0.4 mg/dL (0.2-1.3); BLOOD UREA NITROGEN 17 mg/dL (7-20); CALCIUM 9.5 mg/dL (8.4-10.2); CARBON DIOXIDE 23 mmol/L (22-30); CHLORIDE 107 mmol/L (98-107); GLUCOSE 131 mg/dL (75-110); POTASSIUM 4.2 mmol/L (3.6-5.0); SALICYLATE < 1.0 mg/dL (2.0-20.0); TOTAL PROTEIN 7.6 g/dL (6.3-8.2)
[2019-08-27] MEDS ORDERED: ONDANSETRON HCL INJ/PF 4 MG/2 ML SDV IV ONE (20:02)
[2019-08-27 20:15] LABS: APPEARANCE,URINE CLOUDY; BILIRUBIN,URINE NEGATIVE (NEGATIVE); COLOR,URINE YELLOW; GLUCOSE, URINE NEGATIVE (NEGATIVE); KETONES,URINE TRACE mg/dL (NEGATIVE); LEUKOCYTE ESTERASE,URINE TRACE (NEGATIVE); NITRITE,URINE NEGATIVE (NEGATIVE); PROTEIN,URINE 100 mg/dL (NEGATIVE); URINE SPECIFIC GRAVITY 1.031
[2019-08-27 20:30] LABS: URINE BARBITURATES SCREEN NEGATIVE; URINE BENZODIAZEPINES SCREEN NEGATIVE; URINE COCAINE SCREEN NEGATIVE; URINE METHADONE SCREEN NEGATIVE; URINE PHENCYCLIDINE SCREEN NEGATIVE
[2019-08-27 20:31] LABS: URINE AMPHETAMINES SCREEN UNCONFIRMED POSITIVE; URINE MARIJUANA (THC) SCREEN UNCONFIRMED POSITIVE
[2019-08-27 21:08] VITALS: BP 118/81
[2019-08-27] MEDS ORDERED: ONDANSETRON ODT 4 MG TAB (6 TAB/ER DISP) PO PRN (21:15)
--- NOTE | 2019-08-27 23:35 | EKG REPORT ---
SEVERITY:- BORDERLINE ECG - SINUS TACHYCARDIA PROBABLE LEFT ATRIAL ABNORMALITY BORDERLINE T ABNORMALITIES, INFERIOR LEADS : Confirmed by: Lovely Phan 27-Aug-2019 23:34:22
== END 2019-08-27 21:48 | disposition home or self-care (01) ==
LOC: ER 18:29
DX: T40.601A Poisoning by unspecified narcotics, accidental (unintentional), initial encounter (principal); M25.559 Pain in unspecified hip; R51 Headache; R11.2 Nausea with vomiting, unspecified; F17.200 Nicotine dependence, unspecified, uncomplicated; Z91.048 Other nonmedicinal substance allergy status; Z88.1 Allergy status to other antibiotic agents; Z88.8 Allergy status to other drugs, medicaments and biological substances
CPT/HCPCS: 93005; 99284; 96361; 96374; 96375; 36415; 80307 ×4; 84703; 85025; 80053; 81001; 93010; J1885; J2405; J7030

== ENCOUNTER 2020-05-09 10:19 | Emergency (ER) | payer MEDICAID ==
[2020-05-09 10:26] VITALS: BP 121/70
--- NOTE | 2020-05-09 10:54 | ER Document Report ---
ED Neck/Back Problem - General Chief Complaint: Back Pain Stated Complaint: BACK PAIN Time Seen by Provider: 05/09/20 10:53 Primary Care Provider: MAURICIO DOYLE MD [ASSOCIATE] - Follow up as needed Mode of Arrival: Ambulatory Information source: Patient TRAVEL OUTSIDE OF THE [place] IN LAST 30 DAYS: No - HPI Patient complains to provider of: Pain, Lower back Onset: Last week - Chronic worse for the last week Where: Home, Indoors Onset: Chronic Timing: Waxing and waning Quality of pain: Burning Pain Level: 4 Context: Lifting Recent injury: Yes Associated symptoms: Like prior neck/back pain, Numbness/tingling, Radiation to leg, Lower back pain. denies: Constipation, Incontinence, Unable to urinate Exacerbated by: Sitting position Relieved by: Nothing Similar symptoms previously: Yes Recently seen / treated by doctor: No - Related Data Allergies/Adverse Reactions: red dye [Red Dye] Allergy (Verified 06/25/19 10:54) sulfamethoxazole [From Septra] Allergy (Verified 06/25/19 10:54) trimethoprim [From Septra] Allergy (Verified 06/25/19 10:54) vicks vapor rub Allergy (Uncoded 06/25/19 10:54) Past Medical History - General Information source: Patient - Social History Smoking Status: Current Every Day Smoker Cigarette use (# per day): Yes - Half a pack a day Frequency of alcohol use: None Drug Abuse: None Lives with: Family Family History: Arthritis, COPD, Hyperlipidemia, Hypertension, Thyroid Disfunction. denies: CAD, CVA, DM, Malignancy Patient has suicidal ideation: No Patient has homicidal ideation: No - Past Medical History Cardiac Medical History: Reports: None Pulmonary Medical History: Reports: Hx Bronchitis EENT Medical History: Reports: None Neurological Medical History: Reports: None Endocrine Medical History: Reports: None Renal/ Medical History: Reports: Hx Ovarian Cysts. Denies: Hx Peritoneal Dialysis Malignancy Medical History: Reports: None GI Medical History: Reports: None Musculoskeletal Medical History: Reports Hx Musculoskeletal Deformity, Reports Hx Musculoskeletal Trauma Skin Medical History: Reports None Psychiatric Medical History: Reports: Hx Anxiety, Hx Attention Deficit Hyperactivity Disorder, Hx Depression Traumatic Medical History: Reports: None Infectious Medical History: Reports: None Past Surgical History: Reports: Hx Adenoidectomy, Hx Tonsillectomy - t and a - Immunizations Immunizations up to date: Yes Hx Diphtheria, Pertussis, Tetanus Vaccination: Yes - 2018 Review of Systems - Review of Systems Constitutional: No symptoms reported EENT: No symptoms reported Cardiovascular: No symptoms reported Respiratory: No symptoms reported Gastrointestinal: No symptoms reported Genitourinary: No symptoms reported Female Genitourinary: No symptoms reported Musculoskeletal: Back pain, Muscle pain, Muscle stiffness Skin: No symptoms reported Hematologic/Lymphatic: No symptoms reported Neurological/Psychological: No symptoms reported -: Yes All other systems reviewed and negative Physical Exam - Vital signs Vitals: Temp Pulse Resp BP 98.6 F 108 H 18 121/70 05/09/20 10:24 05/09/20 10:24 05/09/20 10:24 05/09/20 10:24 Interpretation: Normal - General General appearance: Appears well, Alert - HEENT Head: Normocephalic, Atraumatic Eyes: Normal Pupils: PERRL - Respiratory Respiratory status: No respiratory distress Chest status: Nontender Breath sounds: Normal Chest palpation: Normal - Cardiovascular Rhythm: Regular Heart sounds: Normal auscultation Murmur: No - Abdominal Inspection: Normal Distension: No distension Bowel sounds: Normal Tenderness: Nontender Organomegaly: No organomegaly - Back Back: Nontender, Tender, Vertebra tenderness. No: Deformity/step-off, CVA tenderness, Scars, Scoliosis, Wounds Notes: No signs or symptoms of cauda equina, no loss control of bowel bladder, no saddle anesthesia, no loss of control sensation to the lower extremities. She does have low back pain with chronic sciatica bilaterally. - Extremities General upper extremity: Normal inspection, Nontender, Normal color, Normal ROM, Normal temperature General lower extremity: Normal inspection, Nontender, Normal color, Normal ROM, Normal temperature, Normal weight bearing. No: Luly's sign - Neurological Neuro grossly intact: Yes Cognition: Normal Orientation: AAOx4 [place] Coma Scale Eye Opening: Spontaneous [place] Coma Scale Verbal: Oriented [place] Coma Scale Motor: Obeys Commands [place] Coma Scale Total: 15 Speech: Normal Motor strength normal: LUE, RUE, LLE, RLE Sensory: Normal - Psychological Associated symptoms: Normal affect, Normal mood - Skin Skin Temperature: Warm Skin Moisture: Dry Skin Color: Normal Course - Re-evaluation Re-evalutation: 05/09/20 12:03 Patient was treated with Toradol and Decadron as her hCG was negative. We will discharge her after she has waited her time on chart. After performing a Medical Screening Examination, I estimate there is LOW risk for EXPANDING OR RUPTURED ABDOMINAL AORTIC ANEURYSM, CAUDA EQUINA SYNDROME, EPIDURAL MASS LESION, or HERNIATED DISK CAUSING SEVERE SPINAL STENOSIS, thus I consider the discharge disposition reasonable. I have reevaluated this patient multiple times and no significant life threatening changes are noted. The patient and I have discussed the diagnosis and risks, and we agree with discharging home and close follow-up. We also discussed returning to the Emergency Department immediately if new or worsening symptoms occur with the understanding that symptoms and presentations can change. We have discussed the symptoms which are most concerning (e.g., saddle anesthesia, urinary or bowel incontinence or retention, changing or worsening pain) that necessitate immediate return. - Vital Signs Vital signs: Temp Pulse Resp BP Pulse Ox 98.6 F 83 18 121/70 05/09/20 10:24 05/09/20 12:26 05/09/20 10:24 05/09/20 10:24 - Laboratory Laboratory results interpreted by me: 05/09/20 11:09 Ur Leukocyte Esterase LARGE H Discharge - Discharge Clinical Impression: Low back pain Qualifiers: Chronicity: acute Back pain laterality: bilateral Sciatica presence: with sciatica Sciatica laterality: bilateral sciatica Qualified Code(s): M54.42 - Lumbago with sciatica, left side Condition: Stable Disposition: HOME, SELF-CARE Additional Instructions: LOW BACK PAIN: Three out of every four people will have an episode of disabling back pain during their lifetime. Most commonly the pain is due to straining of the muscles and ligaments in the low back. Usual treatment includes: (1) Rest on a firm surface. Avoid lying on your stomach. (2) Ice pack the painful area. After a few days, gentle heat may be used intermittently to relax the area, or ice packs can be continued. (3) Medication may be needed -- muscle relaxers and antiinflammatory medicines are commonly used. (4) As the back improves, exercises are prescribed to strengthen the back and abdominal muscles. Your doctor will advise you on the proper care for your back at each stage in your recovery. You may be better in a few days -- or healing may take several weeks. If new symptoms of a "herniated disc" (radiation of pain, numbness, or tingling down the back of the leg or weakness in the leg) occur, you should be re-examined. Further testing may be necessary. MUSCLE RELAXERS: Muscle relaxing medications are usually prescribed for acute muscle spasm or injury to the neck and back. They are often combined with antiinflammatory pain medication for increased relief. You may stop the muscle relaxer when the pain and stiffness have improved. Start the medication again if spasms recur. Muscle relaxers may cause drowsiness, especially with the first dose. Do not operate machinery or drive while under the effects of the medication. Most muscle relaxers last up to 24 hours. Do not combine the medication with alcohol. ICE PACKS: Apply ice packs frequently against the painful area. Many different schedules are recommended, such as "20 minutes on, 20 minutes off" or "one hour ice, two hours rest." If you need to work, you may need to go longer between ice treatments. You should plan to have the area ice packed AT LEAST one fourth of the time. The ice should be applied over the wrap, tape, or splint, or over a layer of cloth -- not directly against the skin. Some ice bags have a built-in cloth and can be put directly on the skin. WARM PACKS: After approximately two days, apply gentle heat (such as a heating pad or hot water bottle) for about 20 to 30 minutes about every two hours -- at least four times daily. Warmth and elevation will help you make a more rapid recovery, and will ease the pain considerably. Do not use HOT heat, and never apply heat for longer than 30 minutes. The continuous heat can invisibly damage skin and muscles -- even when no burn is seen on the surface. Damaged muscles can make you MORE sore. Toradol Injection You have been given an injection of ketorolac tromethamine (Toradol). This is an excellent, safe drug for pain control. It also has potent antiinflammatory action. You should have significant pain relief within about one hour. Toradol is not addicting and is non-sedating. It does not interfere with driving or work. Call or return if you develop itching, hives, shortness of breath, or rash. STEROID MEDICATION: You have been given an injection of medicine of the cortisone/steroid class. This medication is used to control inflammation or allergy. It is often continued as a pill for a short period of time, until the acute process subsides . There are usually no side effects from short-term use of cortisone-like medications. Some persons feel an increased sense of well-being and are not sleepy at bedtime. Long-term use of cortisone medications is best avoided, unless required for a severe condition. If your condition does not remit, or relapses after the course of corticosteroid medication, you should consult your physician. Stretching Exercises for the Back The physician has recommended that you begin stretching exercises for your back. These are often used even while the back is painful. However, you should notify the physician if the activities seem to increase your pain. PELVIC TILT: Lie flat on your back with knees bent. Tighten your stomach and buttock muscles so it flattens your lower back against the floor. Hold 10 seconds. Repeat 10 times, twice daily. KNEE RAISE: Lying on the back with knees bent, raise one knee to your chest, then the other. Hold both knees against the chest 10 seconds, then lower one knee at a time. Repeat 10 times, twice daily. PARTIAL TRUNK RAISE: Lie face down, arms at your sides. Keeping your waist on the floor, use your arms raise your chest up. Support yourself on your elbows for 30 seconds. Repeat twice daily, increasing the time to two minutes as you recover. FOLLOW-UP CARE: If you have been referred to a physician for follow-up care, call the physicians office for an appointment as you were instructed or within the next two days. If you experience worsening or a significant change in your symptoms, notify the physician immediately or return to the Emergency Department at any time for re-evaluation. Prescriptions: Cyclobenzaprine HCl [Flexeril 10 mg Tablet] 10 mg PO TIDP PRN #15 tab PRN Reason: Forms: Smoking Cessation Education Referrals: MAURICIO DOYLE MD [ASSOCIATE] - Follow up as needed
[2020-05-09] MEDS ORDERED: DEXAMETHASONE SOD PHOSPHATE INJ 4 MG/1 ML VIAL IM ONE (10:56)
[2020-05-09] MEDS ORDERED: KETOROLAC TROMETHAMINE 60 MG/2 ML SDV IM ONE (10:56)
[2020-05-09 11:51] LABS: APPEARANCE,URINE CLOUDY; BILIRUBIN,URINE NEGATIVE (NEGATIVE); COLOR,URINE YELLOW; GLUCOSE, URINE NEGATIVE (NEGATIVE); KETONES,URINE NEGATIVE (NEGATIVE); LEUKOCYTE ESTERASE,URINE LARGE (NEGATIVE); NITRITE,URINE NEGATIVE (NEGATIVE); PROTEIN,URINE NEGATIVE (NEGATIVE); UROBILINOGEN,URINE NEGATIVE mg/dL (<2.0)
== END 2020-05-09 12:28 | disposition home or self-care (01) ==
LOC: ER 10:19
DX: M54.41 Lumbago with sciatica, right side (principal); M54.42 Lumbago with sciatica, left side; M79.10 Myalgia, unspecified site; Z91.048 Other nonmedicinal substance allergy status; Z88.1 Allergy status to other antibiotic agents; F17.210 Nicotine dependence, cigarettes, uncomplicated
CPT/HCPCS: 99284; 96372; 81025; 81001; J1100; J1885

== ENCOUNTER 2020-07-09 19:38 | Emergency (ER) | payer MEDICAID ==
[2020-07-09 21:29] VITALS: BP 111/79
== END 2020-07-09 22:20 | disposition left against medical advice (07) ==
LOC: ER 19:38
DX: Z53.21 Procedure and treatment not carried out due to patient leaving prior to being seen by health care provider (principal)

== ENCOUNTER 2020-07-18 08:15 | Emergency (ER) | payer MEDICAID ==
[2020-07-18] MEDS ORDERED: LIDOCAINE 5% (700 MG) TRANSDERMAL ADH..PATCH TP ONE (09:13)
--- NOTE | 2020-07-18 09:15 | ER Document Report ---
ED Neck/Back Problem - General Chief Complaint: Back Pain Stated Complaint: BACK PAIN Time Seen by Provider: 07/18/20 08:32 Mode of Arrival: Ambulatory Information source: Patient Notes: 25-year-old female past medical history significant for left-sided sciatica presents to the emergency room complaining of worsening left sided sciatica for the past 2 weeks. Patient states she was seen and evaluated by [facility] multiple times over the past 2 months for ongoing chronic sciatica. States pain does radiate down her left leg. States she is waiting on referral to see orthopedics that she has an appointment on August 02. Has been taking ibuprofen Benadryl and hydrocodone without relief. States she was on gabapentin but she broke out in hives so they stopped her gabapentin. She denies any trauma or injury. States she has not had any diagnostic imaging but she has not had any back injuries. She denies any loss of control of her bowels or bladder, no saddle anesthesia. No red flags. No urinary symptoms. States she last took ibuprofen last night. Took her hydrocodone 2 hours prior to arrival. TRAVEL OUTSIDE OF THE [place] IN LAST 30 DAYS: No - Related Data Allergies/Adverse Reactions: gabapentin Allergy (Verified 07/18/20 09:47) rash red dye [Red Dye] Allergy (Verified 07/18/20 08:21) sulfamethoxazole [From Septra] Allergy (Verified 07/18/20 09:47) trimethoprim [From Septra] Allergy (Verified 07/18/20 08:21) vicks vapor rub Allergy (Uncoded 07/18/20 08:21) Past Medical History - General Information source: Patient - Social History Smoking Status: Current Every Day Smoker Chew tobacco use (# tins/day): No Frequency of alcohol use: Rare Drug Abuse: None Family History: Arthritis, COPD, Hyperlipidemia, Hypertension, Thyroid Disfunction, Other - Multiple family members with sciatica. denies: CAD, CVA, DM, Malignancy Pulmonary Medical History: Reports: Hx Bronchitis Renal/ Medical History: Reports: Hx Ovarian Cysts. Denies: Hx Peritoneal Dialysis Musculoskeletal Medical History: Reports Hx Musculoskeletal Deformity, Reports Hx Musculoskeletal Trauma Psychiatric Medical History: Reports: Hx Anxiety, Hx Attention Deficit Hyperactivity Disorder, Hx Depression Past Surgical History: Reports: Hx Adenoidectomy, Hx Tonsillectomy - t and a - Immunizations Immunizations up to date: Yes Hx Diphtheria, Pertussis, Tetanus Vaccination: Yes - 2017 Review of Systems - Review of Systems Constitutional: No symptoms reported EENT: No symptoms reported Cardiovascular: No symptoms reported Respiratory: No symptoms reported Gastrointestinal: No symptoms reported Genitourinary: No symptoms reported Female Genitourinary: No symptoms reported Musculoskeletal: Back pain, Muscle pain Skin: No symptoms reported -: Yes All other systems reviewed and negative Physical Exam - Vital signs Vitals: Temp Pulse Resp BP Pulse Ox 98.0 F 101 H 20 119/84 97 07/18/20 08:19 07/18/20 08:19 07/18/20 08:19 07/18/20 08:19 07/18/20 08:19 - General General appearance: Appears well, Alert In distress: Mild - Respiratory Respiratory status: No respiratory distress Chest status: Nontender Breath sounds: Normal Chest palpation: Normal - Cardiovascular Rhythm: Tachycardia Heart sounds: Normal auscultation Murmur: No - Abdominal Inspection: Normal Distension: No distension Bowel sounds: Normal Tenderness: Nontender Organomegaly: No organomegaly - Back Back: Normal, Nontender. No: Deformity/step-off, CVA tenderness, Vertebra tenderness - She is nontender to palpation over the vertebral spine. There is minimal tenderness noted over the left sciatic notch. Positive straight leg raising on the right at 40 degrees. - Extremities General upper extremity: Normal inspection, Nontender, Normal color, Normal ROM, Normal temperature General lower extremity: Normal inspection, Nontender, Normal color, Normal ROM, Normal temperature, Normal weight bearing. No: Luly's sign - Neurological Neuro grossly intact: Yes Cognition: Normal Orientation: AAOx4 [place] Coma Scale Eye Opening: Spontaneous [place] Coma Scale Verbal: Oriented [place] Coma Scale Motor: Obeys Commands [place] Coma Scale Total: 15 Speech: Normal Motor strength normal: LUE, RUE, LLE, RLE Sensory: Normal Knee - Reflex grade: 2 = Normal Ankle - Reflex grade: 2 = Normal Notes: Ambulatory with slight limping noted to her left leg. She is neurovascularly intact. - Skin Skin Temperature: Warm Skin Moisture: Dry Skin Color: Normal Course - Re-evaluation Re-evalutation: 07/18/20 10:00 Discussed with patient that she has no trauma or injury to her back. This is chronic pain. Indicated that no diagnostic testing is warranted at this time as she is neurovascularly intact. She has outpatient follow-up with orthopedics in a few weeks. Discussed all treatment options. 07/18/2020 11:02 Patient is resting comfortably states her pain has improved. Negative straight leg raising bilaterally. Ambulatory with slight limping on left leg noted with assistance. Reviewed lab results with patient. Will discharge home on p.o. prednisone, lidocaine patches, patient states she already has a prescription at home for Flexeril. Use heat 20 minutes 3 times a day. She is to follow-up outpatient with orthopedics as scheduled as well at [facility] as needed. Patient was given strict return to the emergency room guidelines. Return for any new or worsening symptoms. All questions were answered. Patient verbalized understanding and agrees with plan of care. 07/18/20 12:29 07/18/20 12:30 - Vital Signs Vital signs: Temp Pulse Resp BP Pulse Ox 97.9 F 93 22 H 113/67 99 07/18/20 10:30 07/18/20 10:30 07/18/20 10:30 07/18/20 10:30 07/18/20 10:30 - Laboratory Laboratory results interpreted by me: 07/18/20 09:34 Ur Leukocyte Esterase MODERATE H Discharge - Discharge Clinical Impression: Left sided sciatica Condition: Stable Disposition: HOME, SELF-CARE Instructions: Sciatica ([facility]) Additional Instructions: You have been seen in the Emergency Department (ED) today for sciatica. Your workup and exam have not shown any acute abnormalities and you are likely suffering from muscle strain or possible problems with your discs, but there is no treatment that will fix your symptoms at this time. Please take the prednisone and use the lidocaine patches that has been prescribed as directed. Take your Flexeril as previously prescribed. Apply heat to the area as often as you are able. Continue to keep active and avoid prolonged periods of bed rest. Please follow up with your doctor as soon as possible regarding today's ED visit and your back pain. Return to the ED for worsening back pain, fever, weakness or numbness of either leg, or if you develop either (1) an inability to urinate or have bowel movements, or (2) loss of your ability to control your bathroom functions (if you start having "accidents"), or if you develop other new symptoms that concern you.concern you. Prescriptions: Prednisone [Deltasone 20 mg Tablet] See Protocol PO DAILY 9 Days #18 tablet Lidocaine [Lidocaine Pain Relief] 1 each TP Q12 #10 adh..patch Forms: Return to Work
[2020-07-18 09:56] LABS: APPEARANCE,URINE CLOUDY; BILIRUBIN,URINE NEGATIVE (NEGATIVE); COLOR,URINE YELLOW; GLUCOSE, URINE NEGATIVE (NEGATIVE); KETONES,URINE NEGATIVE (NEGATIVE); LEUKOCYTE ESTERASE,URINE MODERATE (NEGATIVE); NITRITE,URINE NEGATIVE (NEGATIVE); PROTEIN,URINE NEGATIVE (NEGATIVE); URINE SPECIFIC GRAVITY 1.015; UROBILINOGEN,URINE NEGATIVE mg/dL (<2.0)
[2020-07-18] MEDS ORDERED: METHYLPREDNISOLONE INJ 125 MG/2 ML SDV IM ONE (10:05)
[2020-07-18] MEDS ORDERED: CYCLOBENZAPRINE HCL 10 MG TABLET PO ONE (10:05)
[2020-07-18 10:32] VITALS: BP 113/67
== END 2020-07-18 11:24 | disposition home or self-care (01) ==
LOC: ER 08:15
DX: M54.32 Sciatica, left side (principal); G89.29 Other chronic pain; F17.200 Nicotine dependence, unspecified, uncomplicated; Z88.6 Allergy status to analgesic agent; Z91.048 Other nonmedicinal substance allergy status; Z88.1 Allergy status to other antibiotic agents; Z88.8 Allergy status to other drugs, medicaments and biological substances
CPT/HCPCS: 99284; 96372; 81025; 81001; J3490 ×2; J2930

== ENCOUNTER 2020-10-06 00:46 | Emergency (ER) | payer MEDICAID ==
--- NOTE | 2020-10-06 02:28 | RADIOLOGY REPORT (SQ) ---
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 COMPARISON: None available HISTORY: 25-year old patient with back pain. FINDINGS: Five non-rib bearing vertebrae are seen. The vertebral bodies appear well-aligned. The vertebral body heights appear to be maintained. No significant intervertebral disc space narrowing is seen. There is no evidence of acute fracture or subluxation. Both sacroiliac joints appear normal. There is umbilical jewelry noted. IMPRESSION: There is no evidence of an acute fracture or subluxation is seen in the lumbar spine.
[2020-10-06] MEDS ORDERED: CYCLOBENZAPRINE HCL 10 MG TABLET PO ONE (03:03)
--- NOTE | 2020-10-06 03:06 | ER Document Report ---
ED Neck/Back Problem - General Chief Complaint: Post Surgical Pain Stated Complaint: POST OP ISSUES,BACK PAIN Time Seen by Provider: 10/06/20 01:56 Primary Care Provider: ROBERT MCLEAN PA-C [Primary Care Provider] - Follow up as needed Mode of Arrival: Wheelchair Information source: Patient Notes: 25-year-old female past medical history significant for ADHD, depression, presents emergency room complaining of worsening low back pain that started earlier this evening. Patient states on Wednesday she had a lower lumbar microdiscectomy was discharged home that evening. Today she states she was doing some lifting twisted and felt a pain to her back. Also states she went to get her nails done and felt like she may have sat too long. States when she went to get up she had worsening sharp pain. States she did not fall, has not had any fevers, no urinary symptoms. Denies any loss control of her bowels or bladder. No saddle anesthesia. States has been taking her oxycodone without relief. Called her surgeon and was referred to the emergency room. States she had her surgery at [place]. TRAVEL OUTSIDE OF THE [place] IN LAST 30 DAYS: No - Related Data Allergies/Adverse Reactions: gabapentin Allergy (Verified 07/18/20 09:47) rash red dye [Red Dye] Allergy (Verified 07/18/20 08:21) sulfamethoxazole [From Septra] Allergy (Verified 07/18/20 09:47) trimethoprim [From Septra] Allergy (Verified 07/18/20 08:21) vicks vapor rub Allergy (Uncoded 07/18/20 08:21) Past Medical History - General Information source: Patient - Social History Smoking Status: Current Every Day Smoker Frequency of alcohol use: None Drug Abuse: None Family History: Arthritis, COPD, Hyperlipidemia, Hypertension, Thyroid Disfun ction, Other - Multiple family members with sciatica. denies: CAD, CVA, DM, Malignancy Pulmonary Medical History: Reports: Hx Bronchitis Renal/ Medical History: Reports: Hx Ovarian Cysts. Denies: Hx Peritoneal Dialysis Musculoskeletal Medical History: Reports Hx Musculoskeletal Deformity, Reports Hx Musculoskeletal Trauma Psychiatric Medical History: Reports: Hx Anxiety, Hx Attention Deficit Hyperactivity Disorder, Hx Depression Past Surgical History: Reports: Hx Adenoidectomy, Hx Orthopedic Surgery - Spinal disc surgery, Hx Tonsillectomy - t and a - Immunizations Immunizations up to date: Yes Hx Diphtheria, Pertussis, Tetanus Vaccination: Yes - 2018 Review of Systems - Review of Systems Constitutional: No symptoms reported EENT: No symptoms reported Cardiovascular: No symptoms reported Respiratory: No symptoms reported Gastrointestinal: No symptoms reported Genitourinary: No symptoms reported Female Genitourinary: No symptoms reported. denies: Musculoskeletal: Back pain Skin: No symptoms reported Neurological/Psychological: No symptoms reported -: Yes All other systems reviewed and negative Physical Exam - Vital signs Vitals: Temp Pulse Resp BP Pulse Ox 98.7 F 107 H 18 125/79 96 10/06/20 00:52 10/06/20 00:52 10/06/20 00:52 10/06/20 00:52 10/06/20 00:52 - General General appearance: Appears well, Alert In distress: Mild - Respiratory Respiratory status: No respiratory distress Chest status: Nontender Breath sounds: Normal Chest palpation: Normal - Cardiovascular Rhythm: Tachycardia Heart sounds: Normal auscultation Murmur: No - Back Back: Tender - Tenderness on palpation from L3-S1. Surgical scar with no erythema, swelling, no discharge or draining from the scar. Well-healing., Vertebra tenderness - L3-S1, no step-offs, no obvious deformities noted.. No: CVA tenderness Notes: Negative straight leg raising bilaterally - Extremities General upper extremity: Normal inspection, Nontender, Normal color, Normal ROM, Normal temperature General lower extremity: Normal inspection, Nontender, Normal color, Normal ROM, Normal temperature, Normal weight bearing. No: Luly's sign - Neurological Neuro grossly intact: Yes Cognition: Normal Orientation: AAOx4 Marce Coma Scale Eye Opening: Spontaneous [place] Coma Scale Verbal: Oriented Marce Coma Scale Motor: Obeys Commands Marce Coma Scale Total: 15 Speech: Normal Motor strength normal: LUE, RUE, LLE, RLE Sensory: Normal Notes: Patient is able to ambulate without difficulty. She is neurovascularly intact. - Skin Skin Temperature: Warm Skin Moisture: Dry Skin Color: Normal Notes: Healing surgical scar to the lower lumbar region without erythema, tenderness, warmth, or discharge. Course - Re-evaluation Re-evalutation: 10/06/20 03:04 Patient is sleeping easily arousable ambulatory with a steady gait. Neurovascularly intact. Afebrile, nontoxic-appearing, reviewed x-ray results with patient. Discussed with patient the importance of taking her pain medication as prescribed not to miss any doses as it can cause her pain level to go up. She was also counseled to not do any more heavy lifting or sitting for prolonged periods of time. Has not taken her Flexeril. Will give 1 dose of p.o. Flexeril and discharged home. She is to follow-up with her surgeon on Wednesday. Patient was given strict return to the emergency room guidelines. Return for any new or worsening symptoms. All questions were answered. Patient verbalized understanding and agrees with plan of care. - Vital Signs Vital signs: Temp Pulse Resp BP Pulse Ox 97.9 F 98 20 117/74 100 10/06/20 03:28 10/06/20 03:28 10/06/20 03:28 10/06/20 03:28 10/06/20 03:28 - Laboratory Results Critical Laboratory Results Reviewed: No Critical Results - Radiology Results Critical Radiology Results Reviewed: No Critical Results Discharge - Discharge Clinical Impression: Postoperative back pain Condition: Stable Disposition: HOME, SELF-CARE Instructions: Chronic Back Pain ([facility]) Additional Instructions: Please take your pain medication as prescribed. Do not miss any doses to prevent your pain level from escalating. No heavy lifting. No sitting for prolonged periods of time. Continue with your home medications including your Flexeril. Follow-up with your surgeon on Wednesday. Return to the emergency room for any new or worsening symptoms. Referrals: ROBERT MCLEAN PA-C [Primary Care Provider] - Follow up as needed
[2020-10-06 03:28] VITALS: BP 117/74
== END 2020-10-06 03:28 | disposition home or self-care (01) ==
LOC: ER 00:46
DX: G89.18 Other acute postprocedural pain (principal); M54.9 Dorsalgia, unspecified; F17.200 Nicotine dependence, unspecified, uncomplicated; Z88.3 Allergy status to other anti-infective agents
CPT/HCPCS: 99283; 72100; J3490